=== PATIENT | male | born 1955 | race Caucasian/White ===

== ENCOUNTER 2019-04-25 11:59 | Emergency (ER) | payer MEDICAID ==
[~2019-04-25] VITALS: Ht 182.9 cm; Wt 108.9 kg
[~2019-04-25 11:59] MED LIST: ACETAMINOPHEN-1 EAC1 ORAL; ACETAMINOPHEN500 M3 ORAL; BACITRACIN15 GM TOPIC; IBUPROFEN600 MG ORAL; NKM; NORCO 5-325 TA1 EACH ORAL
--- NOTE | 2019-04-25 14:32 | NUR ---
ED Nurse Note: pt care assummed pt amb steady gait to rm, awaits further eval
--- NOTE | 2019-04-25 15:13 | NUR ---
ED Nurse Note: pt without new orders
--- NOTE | 2019-04-25 15:36 | NUR ---
ED Nurse Note: pt states he needs to go to [facility] and attempting to amb pt became pale and had near syncopal episode pt assisted to ground and then placed back into bed pt noted to have been incontinent prior to attempting ambulation to [facility]. hiro alexis and charge entry specialist aware.
--- NOTE | 2019-04-25 17:00 | NUR ---
ED Nurse Note: pt aware to pee in urinal when able. pt had requested to have his clothing thrown out as he had urinated them.
[2019-04-25 17:34] LABS: BASOPHILS % (AUTO) 0.9 % (0.0-2.0); EOSINOPHILS % (AUTO) 0.2 % (0.0-3.0); HEMOGLOBIN 11.4 G/DL (14.2-18.0); LYMPHOCYTES % (AUTO) 35.2 % (20.0-45.0); MEAN CORPUSCULAR VOLUME 105 FL (80-99); MONOCYTES % (AUTO) 9.1 % (1.0-10.0); NEUTROPHILS % (AUTO) 54.7 % (45.0-75.0); PLATELET COUNT 144 K/UL (150-450); RED BLOOD COUNT 3.51 M/UL (4.70-6.10); RED CELL DISTRIBUTION WIDTH 14.8 % (11.6-14.8); WHITE BLOOD COUNT 7.7 K/UL (4.8-10.8)
--- NOTE | 2019-04-25 17:34 | NUR ---
ED Nurse Note: pt states he lives in [place] and [place] the bus to [place] registration updating pt's data
[2019-04-25 17:41] LABS: ANION GAP 12 mmol/L (5-15); BLOOD UREA NITROGEN 40 mg/dL (7-18); CALCIUM 8.6 MG/DL (8.5-10.1); CARBON DIOXIDE 26 MMOL/L (21-32); CHLORIDE 102 MMOL/L (98-107); CREATININE 0.9 MG/DL (0.55-1.30); POTASSIUM 3.5 MMOL/L (3.5-5.1); SODIUM 140 MMOL/L (136-145)
[2019-04-25 17:45] LABS: ALANINE AMINOTRANSFERASE 119 U/L (12-78); ALBUMIN 3.9 G/DL (3.4-5.0); ALKALINE PHOSPHATASE 37 U/L (46-116); ASPARTATE AMINO TRANSFERASE 88 U/L (15-37); BILIRUBIN,TOTAL 0.4 MG/DL (0.2-1.0)
[2019-04-25 17:47] LABS: PHOSPHORUS 3.7 MG/DL (2.5-4.9)
[2019-04-25 18:49] LABS: APPEARANCE,URINE CLEAR; BILIRUBIN, URINE NEGATIVE (NEGATIVE); GLUCOSE, URINE (UA) NEGATIVE (NEGATIVE); KETONES,URINE 3+ (NEGATIVE); LEUKOCYTE ESTERASE ,URINE NEGATIVE (NEGATIVE); NITRITE,URINE NEGATIVE (NEGATIVE); PH,URINE 5 (4.5-8.0); PROTEIN,URINE 1+ (NEGATIVE); UROBILINOGEN,URINE NORMAL MG/DL (0.0-1.0)
--- NOTE | 2019-04-25 18:50 | NUR ---
ED Nurse Note: voided urine sent to lab. pt without tremors or increased c/o
[2019-04-25 18:59] LABS: COLOR,URINE YELLOW
[2019-04-25 20:00] VITALS: BP 144/67
--- NOTE | 2019-04-25 20:00 | NUR ---
ED Nurse Note: Recieved report to resume care, pt in bed awake and alert, pt is here for etoh abuse and to be discharged when pt can walk safely, pt has severe tremors noted, is restless and slightly agitated, calls nurse very frequently for water, etc., pt denies pain, has patent IV line in right arm, pt stattes is not homeless but does not have anyone to come get him, will continue to closely monitor and prepare for discharge when safe.
--- NOTE | 2019-04-25 22:57 | Emergency Room Report ---
History of Present Illness General Chief Complaint: Alcohol Intoxication Source: Patient Present Illness HPI 63-year-old male presents to the emergency department complaining of possible EtOH withdrawal seizure. Patient states that he has been drinking wine for the past 2 days. Patient reports prior to his 2-day binge he was evaluated at an alternate hospital for possible seizure. Patient reports that someone called 911 because he was shaking. Patient reports he did not lose consciousness and recalls the event. Patient denies history of seizures in the past. He denies history of high blood pressure alcohol withdrawal prior to 2 days ago. Patient denies having consistent EtOH consumption. He reports he feels weak and shaky but denies LOC today. Patient reports that bystanders called 911 when he was not able to walk earlier. He denies open wounds or bleeding. He denies pain at this time. He reports shakiness and weakness is intermittent. Denies drug use. Denies hx of back injury. Denies numbness tingling or loss of sensation or gross motor movements of the extremities, incontinence of bowel or bladder. Denies CP, Palpitations, LOC, , dizziness, Changes in Vision, weakness or a sudden severe headache. He denies neck pain. He denies vomiting or nausea. He denies being rx'd any anti-seizure medications or medications for ETOH w/d. HE denies fevers or chills. Reports he lives at a [facility] facility. Allergies: Coded Allergies: No Known Allergies (Unverified , 04/28/14) Patient History Past Medical History: see triage record Past Surgical History: none Pertinent Family History: none Social History: Reports: alcohol use Reviewed Nursing Documentation: PMH: Agreed; PSxH: Agreed Nursing Documentation-PM Past Medical History: No Stated History Review of Systems All Other Systems: negative except mentioned in HPI Physical Exam Vital Signs Date Time Temp Pulse Resp B/P (MAP) Pulse Ox O2 Delivery O2 Flow Rate FiO2 04/25/19 11:52 98.6 88 16 136/82 (100) 99 Room Air Sp02 EP Interpretation: reviewed, normal General Appearance: no apparent distress, alert, GCS 15, non-toxic Head: normocephalic, atraumatic Eyes: bilateral eye normal inspection, bilateral eye PERRL ENT: hearing grossly normal, normal pharynx, normal voice, TMs + canals normal - no hemotympanum, moist mucus membranes, other - no oral trauma/ lesions/ abrasions. Neck: full range of motion, no meningismus, no bony tend Respiratory: chest non-tender, lungs clear, normal breath sounds, no respiratory distress, no accessory muscle use, no wheezing, speaking full sentences Cardiovascular #1: regular rate, rhythm, normal capillary refill Cardiovascular #2: 2+ radial (R), 2+ radial (L) Gastrointestinal: normal bowel sounds, non tender, soft, non-distended, no guarding Musculoskeletal: back normal, normal range of motion, gait/station normal - without assistance., non-tender Neurologic: alert, motor strength/tone normal, oriented x3, sensory intact, responsive, speech normal - answers questions appropriately and provides sufficient amt. of details without significant increased response time or difficulty with word recall. PT. somewhat lethargic., grossly normal, no focal defects, other - no nystagmus. No agitation or tremulousness Psychiatric: judgement/insight normal, no suicidal/homicidal ideation, no delusions Skin: no rash, normal color Medical Decision Making PA Attestation Dr. Hawk Is my supervising Physician whom patient management has been discussed with. Diagnostic Impression: Primary Impression: Alcohol intoxication Qualified Codes: F10.920 - Alcohol use, unspecified with intoxication, uncomplicated ER Course 63-year-old male presents to the emergency department complaining of possible EtOH withdrawal seizure. Patient states that he has been drinking wine for the past 2 days. Patient reports prior to his 2-day binge he was evaluated at an alternate hospital for possible seizure. Patient reports that someone called 911 because he was shaking. Patient reports he did not lose consciousness and recalls the event. Patient denies history of seizures in the past. He denies history of high blood pressure alcohol withdrawal prior to 2 days ago. Patient denies having consistent EtOH consumption. He reports he feels weak and shaky but denies LOC today. Patient reports that bystanders called 911 when he was not able to walk earlier. He denies open wounds or bleeding. He denies pain at this time. He reports shakiness and weakness is intermittent. Denies drug use. Denies hx of back injury. Denies numbness tingling or loss of sensation or gross motor movements of the extremities, incontinence of bowel or bladder. Denies CP, Palpitations, LOC, , dizziness, Changes in Vision, weakness or a sudden severe headache. He denies neck pain. He denies vomiting or nausea. He denies being rx'd any anti-seizure medications or medications for ETOH w/d. HE denies fevers or chills. Reports he lives at a [facility] facility. Pt. presents to the ED intoxicated with alcohol, pt. is NAD, pt. is alert, no obvious signs of trauma, able to ambulate to the gurney in Ortho room. No obvious indication of agitation or impending ETOH w/d tremens. Ddx considered but are not limited to ETOH, Trauma, Syncope, dementia, OD, Seizure, Cauda Equina, CVA just to name a few. Vital signs: are WNL, pt. is afebrile H&PE are most consistent with ETOH intoxication without focal neurological deficit. PT. upon return evaluation appeared to have urinated on himself while sleeping. Pt. later ambulated to the bathroom and upon return to his room required assistance for near syncope. PT. did not have LOC, and did not have a witnessed sz. ORDERS: -Serum ETOH: 215 - Accucheck: - CMP: elevated ALT at 119 and BUN at 40 -CBC: anemia -Tylenol and ASA levels: WNL - UDS: negative - UA: occasional bacteria but no inflammatory marker increase c/w contamination over UTI. ED INTERVENTIONS: -Observance while he detoxifies. Pt. was allowed to sleep/rest. will do repeat neuro exams and monitor VS. until pt is clinically sober. - PT. has consistently normal VS, not indicating w/d. HE is c/o being shaky and difficulty walking due to "Shakiness" He is able to stand but refuses to ambulate. - Librium PO D/w pt. case with on-coming ED physician whom feels pt. is not demonstrating emergently concerning W/d symptoms and recommends D/c with oral medications. DISCHARGE: At this time pt. is stable for d/c to home. Will provide printed patient care instructions, and any necessary prescriptions. Care plan and follow up instructions have been discussed with the patient prior to discharge. Labs Test 04/25/19 16:10 04/25/19 18:30 White Blood Count 7.7 K/UL (4.8-10.8) Red Blood Count 3.51 M/UL (4.70-6.10) Hemoglobin 11.4 G/DL (14.2-18.0) Hematocrit 37.0 % (42.0-52.0) Mean Corpuscular Volume 105 FL (80-99) Mean Corpuscular Hemoglobin 32.5 PG (27.0-31.0) Mean Corpuscular Hemoglobin Concent 30.9 G/DL (32.0-36.0) Red Cell Distribution Width 14.8 % (11.6-14.8) Platelet Count 144 K/UL (150-450) Mean Platelet Volume 8.2 FL (6.5-10.1) Neutrophils (%) (Auto) 54.7 % (45.0-75.0) Lymphocytes (%) (Auto) 35.2 % (20.0-45.0) Monocytes (%) (Auto) 9.1 % (1.0-10.0) Eosinophils (%) (Auto) 0.2 % (0.0-3.0) Basophils (%) (Auto) 0.9 % (0.0-2.0) Sodium Level 140 MMOL/L (136-145) Potassium Level 3.5 MMOL/L (3.5-5.1) Chloride Level 102 MMOL/L (98-107) Carbon Dioxide Level 26 MMOL/L (21-32) Anion Gap 12 mmol/L (5-15) Blood Urea Nitrogen 40 mg/dL (7-18) Creatinine 0.9 MG/DL (0.55-1.30) Estimat Glomerular Filtration Rate > 60 mL/min (>60) Glucose Level 102 MG/DL (74-106) Calcium Level 8.6 MG/DL (8.5-10.1) Phosphorus Level 3.7 MG/DL (2.5-4.9) Magnesium Level 2.2 MG/DL (1.8-2.4) Total Bilirubin 0.4 MG/DL (0.2-1.0) Aspartate Amino Transf (AST/SGOT) 88 U/L (15-37) Alanine Aminotransferase (ALT/SGPT) 119 U/L (12-78) Alkaline Phosphatase 37 U/L (46-116) Total Protein 7.7 G/DL (6.4-8.2) Albumin 3.9 G/DL (3.4-5.0) Globulin 3.8 g/dL Albumin/Globulin Ratio 1.0 (1.0-2.7) Salicylates Level 1.1 ug/mL (2.8-20) Acetaminophen Level < 2 MCG/ML (10-30) Serum Alcohol 215 mg/dL Urine Color Yellow Urine Appearance Clear Urine pH 5 (4.5-8.0) Urine Specific [place] 1.020 (1.005-1.035) Urine Protein 1+ (NEGATIVE) Urine Glucose (UA) Negative (NEGATIVE) Urine Ketones 3+ (NEGATIVE) Urine Blood 1+ (NEGATIVE) Urine Nitrite Negative (NEGATIVE) Urine Bilirubin Negative (NEGATIVE) Urine Urobilinogen Normal MG/DL (0.0-1.0) Urine Leukocyte Esterase Negative (NEGATIVE) Urine RBC 0-2 /HPF (0 - 0) Urine WBC 0-2 /HPF (0 - 0) Urine Squamous Epithelial Cells None /LPF (NONE/OCC) Urine Bacteria Occasional /HPF (NONE) Urine Opiates Screen Negative (NEGATIVE) Urine Barbiturates Screen Negative (NEGATIVE) Phencyclidine (PCP) Screen Negative (NEGATIVE) Urine Amphetamines Screen Negative (NEGATIVE) Urine Benzodiazepines Screen Negative (NEGATIVE) Urine Cocaine Screen Negative (NEGATIVE) Urine Marijuana (THC) Screen Negative (NEGATIVE) EKG Diagnostic Results EP Interpretation: Dr. Hawk Rate: normal - 91 BPM Rhythm: NSR ST Segments: no acute changes Other Impression Left fascicular block, PAC's ASA given to the pt in ED: No PA Scribe Text This Interpretation was scribed by MARIAMA Rodriguez. Last Vital Signs Date Time Temp Pulse Resp B/P (MAP) Pulse Ox O2 Delivery O2 Flow Rate FiO2 04/25/19 18:51 88 16 Room Air 04/25/19 11:52 98.6 136/82 (100) 99 Disposition: HOME, SELF-CARE Condition: Stable Physician Consult: Dr. Yane Lugo Chlordiazepoxide Hcl* (LIBRIUM*) 10 Mg Capsule 10 MG ORAL Q8HR for ETOH Withdraw symptoms, #6 CAP 0 Refills Prov: Daniela Rodriguez 04/25/19 Referrals: NOT CHOSEN IPA/MD,REFERRING (PCP) Patient Instructions: Alcohol Abuse and Nutrition, Alcohol Intoxication, Easy- to-Read, Alcohol Withdrawal Daniela Rodriguez Apr 25, 2019 22:57
[2019-04-25] MEDS ORDERED: chlordiazePOXIDE 25mg Cap ORAL ONE (23:15)
[2019-04-25] MEDS ORDERED: LIBRIUM10 MG ORAL (23:16)
[2019-04-26 00:05] VITALS: BP 144/67
== END 2019-04-26 00:05 | disposition home or self-care (01) ==
LOC: EDBD 11:59 → EMR 12:41
DX: F10.920 Alcohol use, unspecified with intoxication, uncomplicated (principal); Y90.7 Blood alcohol level of 200-239 mg/100 ml; D64.9 Anemia, unspecified; R55 Syncope and collapse; R56.9 Unspecified convulsions
CPT/HCPCS: 36415; 80053; 80307; 81003; 82962; 83735; 84100; 85025; 93005; 96360; G0480; G0481; J7030; Z7502; 99284

== ENCOUNTER 2019-05-22 23:09 | Emergency (ER) | payer MEDICAID ==
[~2019-05-22] VITALS: Ht 182.9 cm; Wt 90.7 kg
[~2019-05-22 23:09] MED LIST changes: +LIBRIUM10 MG ORAL
--- NOTE | 2019-05-22 23:24 | NUR ---
ED Nurse Note: pt SHIRA CO 10/ pain in right morgan that radiates up leg. Pt states that he was playing basketball earlier today and was accidentally hit in the leg by another player. Moderate sized hardened mass on right morgan; pt states mass has been present for 2 years. Pt VSS no s/s of distress noted. Awaiting ERMD at bedside. Pt aao x 4.
[2019-05-22 23:25] VITALS: BP 114/24
--- NOTE | 2019-05-22 23:40 | NUR ---
ED Nurse Note: All medications administered; pt tolerated well no s/s of distress noted. no adverse reactions noted
--- NOTE | 2019-05-22 23:50 | NUR ---
ED Nurse Note: ERMD at bedside
[2019-05-22] MEDS ORDERED: IBUPROFEN600 MG ORAL (23:52)
--- NOTE | 2019-05-22 23:52 | Emergency Room Report ---
History of Present Illness General Chief Complaint: Pain Source: Patient Present Illness HPI Is a 63-year-old male with a history of chronic pain secondary to right tibia fracture in the past. He also is an alcoholic. He has been here several times for the same thing. He called 911 complaining of right leg pain. Is a chronic problem but worse today after playing basketball. No other injury. Did not pass out. Pain is 9 out of 10. No fever chills but no nausea no vomiting. Allergies: Coded Allergies: No Known Allergies (Unverified , 04/28/14) Patient History Past Medical History: see triage record, old chart reviewed Past Surgical History: other Pertinent Family History: none Social History: Reports: alcohol use Immunizations: other Reviewed Nursing Documentation: PMH: Agreed; PSxH: Agreed Nursing Documentation-PM Past Medical History: No Stated History Review of Systems Eye: Denies: eye pain, blurred vision ENT: Denies: ear pain, nose congestion, throat swelling Respiratory: Denies: cough, shortness of breath Cardiovascular: Denies: chest pain, palpitations Gastrointestinal: Denies: abdominal pain, diarrhea, nausea, vomiting Musculoskeletal: Reports: muscle pain; Denies: back pain, joint pain Skin: Denies: rash Neurological: Denies: headache, numbness Endocrine: Denies: increased thirst, increased urine Hematologic/Lymphatic: Denies: easy bruising All Other Systems: negative except mentioned in HPI Physical Exam Vital Signs Date Time Temp Pulse Resp B/P (MAP) Pulse Ox O2 Delivery O2 Flow Rate FiO2 05/22/19 23:18 98.6 62 18 114/24 (54) 99 Room Air Vitals normal Sp02 EP Interpretation: reviewed, normal General Appearance: well appearing, no apparent distress, alert Head: normocephalic, atraumatic Eyes: bilateral eye PERRL, bilateral eye EOMI ENT: hearing grossly normal, normal pharynx Neck: full range of motion, supple, no meningismus Respiratory: chest non-tender, lungs clear, normal breath sounds Cardiovascular #1: regular rate, rhythm, no murmur Gastrointestinal: normal bowel sounds, non tender, no mass, no organomegaly, no bruit, non-distended Musculoskeletal: back normal, normal range of motion, gait/station normal, other - Right leg: There is deformity to the mid tibial shaft. This is chronic. No new fracture. Psychiatric: mood/affect normal Medical Decision Making Diagnostic Impression: Primary Impression: Chronic leg pain Qualified Codes: M79.604 - Pain in right leg; G89.29 - Other chronic pain Additional Impression: Chronic pain Qualified Codes: G89.4 - Chronic pain syndrome ER Course No exacerbation of right leg pain. No evidence of infection or new injury. No fracture. Will discharge home. Last Vital Signs Date Time Temp Pulse Resp B/P (MAP) Pulse Ox O2 Delivery O2 Flow Rate FiO2 05/22/19 23:25 98.6 62 18 114/24 99 Room Air Status: improved Disposition: HOME, SELF-CARE Condition: Stable Scripts Ibuprofen* (MOTRIN*) 600 Mg Tablet 600 MG ORAL THREE TIMES A DAY, #30 TAB 0 Refills Prov: Angelo Che MD 05/22/19 Referrals: NOT CHOSEN IPA/,REFERRING (PCP) Additional Instructions: Follow-up with your doctor in 7 days. Return if worse. Angelo Che MD May 22, 2019 23:52
[2019-05-23 00:02] VITALS: BP 114/24
--- NOTE | 2019-05-23 00:02 | NUR ---
ER DISCHARGE NOTE: Patient is cleared to be discharged home per ERMD, pt is aox4, on room air, with stable vital signs. pt was given dc and prescription instructions, pt was able to verbalize understanding, pt id band removed. pt is able to ambulate with steady gait. pt took all belongings. Pt refused to leave room after signing DC paperwork; ERMD aware. Security notified per ERMD. Pt was escorted to waiting room with all belongings.
== END 2019-05-23 00:02 | disposition home or self-care (01) ==
LOC: EDUNIT# 23:09 → EDBD 23:09 → EMR 23:31
DX: M79.604 Pain in right leg (principal); G89.29 Other chronic pain; G89.4 Chronic pain syndrome
CPT/HCPCS: 99281

== ENCOUNTER 2020-01-05 13:25 | Emergency (ER) | payer MEDICAID ==
[~2020-01-05] VITALS: Ht 185.4 cm; Wt 88.5 kg
--- NOTE | 2020-01-05 13:30 | NUR ---
ED Nurse Note: Patient was brought in by [facility] [id number]homeless due to ETOH and Rt leg pain. Patient presented with strong smell of alcohol, AAO x3, VSS at this time, IV was established on left AC 20ga, blood collected sent to lab.
--- NOTE | 2020-01-05 13:55 | Emergency Room Report ---
History of Present Illness General Chief Complaint: Alcohol Intoxication Source: Patient Present Illness HPI 64-year-old male with no known significant past medical history brought in by paramedics due to alcohol intoxication and right leg pain. Patient reports that injured his right lower leg and started drinking alcohol. Denies any drug use, chest pain, shortness of breath, headache and dizziness. Speaking in full sentences. Patient is neurovascularly intact. Denies abdominal pain, nausea diarrhea. At this time patient is a poor historian. Allergies: Coded Allergies: No Known Allergies (Unverified , 04/28/14) COVID-19 Screening Contact w/high risk pt: No Experienced COVID-19 symptoms?: No COVID-19 Testing performed DEPUTY SHERIFF K9 HANDLER: No Patient History Past Medical History: see triage record Past Surgical History: unable to obtain Pertinent Family History: unable to obtain Social History: Reports: alcohol use Reviewed Nursing Documentation: PMH: Agreed; PSxH: Agreed Nursing Documentation-PM Past Medical History: No History, Except For Hx Cardiac Problems: No - ETOH Review of Systems All Other Systems: negative except mentioned in HPI Physical Exam Vital Signs Date Time Temp Pulse Resp B/P (MAP) Pulse Ox O2 Delivery O2 Flow Rate FiO2 01/05/20 13:21 98.2 70 18 98/62 (74) 95 Room Air Sp02 EP Interpretation: abnormal - Low blood pressure General Appearance: mild distress Head: normocephalic, atraumatic Eyes: bilateral eye normal inspection, bilateral eye PERRL ENT: hearing grossly normal, normal pharynx, no angioedema, normal voice Neck: full range of motion, supple/symm/no masses Respiratory: chest non-tender, lungs clear, normal breath sounds, speaking full sentences Cardiovascular #1: regular rate, rhythm, no edema Cardiovascular #2: 2+ radial (R), 2+ radial (L), 2+ dorsalis pedis (R), 2+ dorsalis pedis (L) Gastrointestinal: normal bowel sounds, non tender, soft, non-distended, no guarding, no rebound Genitourinary: no CVA tenderness Musculoskeletal: back normal, no calf tenderness, pelvis stable, non-tender, other - Deformity of anterior right tib-fib which appears to be old Neurologic: alert, motor strength/tone normal, oriented, sensory intact, responsive, speech normal Psychiatric: mood/affect normal, no suicidal/homicidal ideation Skin: no rash Lymphatic: no adenopathy Medical Decision Making PA Attestation All my diagnosis and treatment plans were reviewed ad discussed with my supervising physician Dr. Garcia Diagnostic Impression: Primary Impression: Acute alcoholic intoxication Additional Impression: Chronic leg pain ER Course 64-year-old male with no known significant past medical history brought in by paramedics due to alcohol intoxication and right leg pain. Patient reports that injured his right lower leg and started drinking alcohol. Denies any drug use, chest pain, shortness of breath, headache and dizziness. Speaking in full sentences. Patient is neurovascularly intact. Denies abdominal pain, nausea diarrhea. At this time patient is a poor historian. Ddx considered but are not limited to: Alcohol intoxication with altered level of consciousness, alcohol intoxication causing pancreatitis, alcohol abuse, multi drug use and alcohol intoxication Vital signs: are WNL, pt. is afebrile H&PE are most consistent with: alcohol intoxication, chronic leg pain ORDERS: CBC, CMP, UA, urine tox screen,cxr, right tib fib ER intervention: NS bolus, zofran, pepcid DISCHARGE: At this time pt. is stable for d/c to home. Will provide printed patient care instructions, and any necessary prescriptions. Care plan and follow up instructions have been discussed with the patient prior to discharge. Avoid alcohol intake, follow-up with primary care provider and pain management regarding chronic leg pain, worsening symptoms return to the emergency room EKG Diagnostic Results Rate: normal Rhythm: NSR ST Segments: no acute changes Other Impression No acute ST changes ASA given to the pt in ED: No Chest X-Ray Diagnostic Results Chest X-Ray Diagnostic Results : Chest X-Ray Ordered: Yes # of Views/Limited/Complete: 1 View EP Interpretation: Yes PA Xray: Interpretation reviewed, by supervising MD, and agrees with findings. Interpretation: no consolidation, no effusion, no pneumothorax, no acute cardiopulmonary disease Impression: No acute disease Electronically Signed by: Mehul Capps PA-C CT/MRI/US Diagnostic Results CT/MRI/US Diagnostic Results : Imaging Test Ordered: Head CT no contrast Impression No intracranial bleed, no skull fracture Last Vital Signs Date Time Temp Pulse Resp B/P (MAP) Pulse Ox O2 Delivery O2 Flow Rate FiO2 01/05/20 13:28 87 20 Room Air 01/05/20 13:21 98.2 98/62 (74) 95 Disposition: HOME, SELF-CARE Condition: Stable Patient Instructions: Alcohol Abuse and Nutrition, Alcohol Intoxication, [id number], Chronic Pain Additional Instructions: Avoid alcohol intake, follow-up with primary care provider and pain management regarding chronic leg pain, worsening symptoms return to the emergency room Mehul Coleman Jan 05, 2020 13:55
--- NOTE | 2020-01-05 14:26 | Diagnostic Imaging Report ---
Indications: Altered level of consciousness Technique: Spiral acquisitions obtained through the brain. Angled axial and coronal 5 x 5 mm slices were reconstructed. Total dose length product 1152 mGycm. CTDI vol(s) 53 mGy. Dose reduction achieved using automated exposure control Comparison: None. Findings: There is age-related enlargement of the ventricles and extra axial CSF spaces. There is periventricular deep white matter low-attenuation consistent with chronic microvascular ischemic change. Otherwise normal zuñiga-white differentiation. No acute intracranial hemorrhage or edema, mass effect, nor midline shift. The calvarium is intact. The mastoids are clear. The visualized orbits and sinuses are unremarkable. Impression: Chronic and age-related changes Negative for acute intracranial bleed or mass effect The CT scanner at [facility] is accredited by the [employer] and the scans are performed using protocols designed to limit radiation exposure to as low as reasonably achievable to attain images of sufficient resolution adequate for diagnostic evaluation.
[2020-01-05 14:41] LABS: HEMATOCRIT 38.8 % (42.0-52.0); HEMOGLOBIN 12.9 G/DL (14.2-18.0); MEAN CORPUSCULAR VOLUME 92 FL (80-99); PLATELET COUNT 128 K/UL (150-450); RED BLOOD COUNT 4.21 M/UL (4.70-6.10); RED CELL DISTRIBUTION WIDTH 16.2 % (11.6-14.8); WHITE BLOOD COUNT 4.4 K/UL (4.8-10.8)
[2020-01-05 14:57] LABS: ANION GAP 10 mmol/L (5-15); BLOOD UREA NITROGEN 7 mg/dL (7-18); CALCIUM 8.1 MG/DL (8.5-10.1); CARBON DIOXIDE 29 MMOL/L (21-32); CHLORIDE 102 MMOL/L (98-107); CREATININE 0.9 MG/DL (0.55-1.30); POTASSIUM 4.2 MMOL/L (3.5-5.1); SODIUM 141 MMOL/L (136-145)
[2020-01-05 15:05] LABS: ALANINE AMINOTRANSFERASE 93 U/L (12-78); ALBUMIN/GLOBULIN RATIO 1.1 (1.0-2.7); ALKALINE PHOSPHATASE 44 U/L (46-116); ASPARTATE AMINO TRANSFERASE 142 U/L (15-37); BILIRUBIN,TOTAL 0.6 MG/DL (0.2-1.0)
--- NOTE | 2020-01-05 15:05 | NUR ---
ED Nurse Note: diner tray was provided
[2020-01-05] MEDS ORDERED: DiphenhydrAMINE 50mg/ml Inj IM ONE (15:30)
[2020-01-05] MEDS ORDERED: chlordiazePOXIDE 25mg Cap ORAL ONE (15:30)
[2020-01-05] MEDS ORDERED: LORazepam Inj 2mg/ml 1ml IM ONE (15:30)
--- NOTE | 2020-01-05 16:13 | Diagnostic Imaging Report ---
Indication: Chest pain Technique: One view of the chest Comparison: none Findings: Lungs and pleural spaces are clear. Heart size is normal. The aorta is tortuous Impression: No acute process
--- NOTE | 2020-01-05 16:14 | Diagnostic Imaging Report ---
Indication: Reason For Exam: TRAUMA Technique: 2 views of the right tibia and fibula Comparison: none Findings: There are old healed fracture deformities of the mid tibia and fibula. There is a defect in the proximal tibia which may represent old screw hole. No acute fractures. No dislocations. Impression: Chronic posttraumatic changes as described. No definite acute bony trauma
[2020-01-05] MEDS ORDERED: Thiamine 100mg tab ORAL ONE (16:30)
--- NOTE | 2020-01-05 18:45 | NUR ---
ED Nurse Note: Patient is sleeping, all VSS at this time, NAD noted
[2020-01-05 18:46] VITALS: BP 144/87
--- NOTE | 2020-01-05 19:10 | NUR ---
HAND-OFF: Report given to YINA Arteaga.
--- NOTE | 2020-01-05 19:15 | NUR ---
ED Nurse Note: Recieved report from YINA Ware to resume care, pt in bed resting quietly, sleeping, arouses easily to verbal stimuli, pt urinated on floor and clothing is soiled, pt here for ETOH intoxication and being d/c when sober, pt IV line on floor, pt is calm and cooperative and asking for foiiod, given sandwich and juice, will resume care, continue to closely monitor and d/c when sober.
[2020-01-05 20:30] VITALS: BP 144/87
--- NOTE | 2020-01-08 19:37 | Cardiology Report ---
APPROVED REPORT EKG Measurement Heart [id number] <Conclusion> Normal sinus rhythm Left axis deviation Septal infarct, age undetermined IVCD Abnormal ECG
== END 2020-01-05 20:30 | disposition home or self-care (01) ==
LOC: EDBD 13:25 → EMR 13:57
DX: F10.129 Alcohol abuse with intoxication, unspecified (principal); G89.29 Other chronic pain; M79.661 Pain in right lower leg; Y90.8 Blood alcohol level of 240 mg/100 ml or more
CPT/HCPCS: 36415; 70450; 71045; 73590; 80053; 83690; 84484; 85007; 85025; 93005; 96361; 96372; 96374; 96375; 96376; G0480; J2405; J7030; S0028; Z7502; 99284

== ENCOUNTER 2020-02-04 17:20 | Emergency (ER) | payer MEDICAID ==
[~2020-02-04] VITALS: Ht 182.9 cm; Wt 83.9 kg
--- NOTE | 2020-02-04 17:20 | NUR ---
ED Nurse Note: Pt was brought in by ambulance from a liquor store d/t ETOH intoxication. Pt is currently AOx3, lethargic, cooperative to care whenever being called, VSS, breathing even and unlabored, afebrile on triage. Pt was placed on bed, safety measures in placed, will continue to monitor.
--- NOTE | 2020-02-04 17:25 | Emergency Room Report ---
History of Present Illness General Chief Complaint: Alcohol Intoxication Source: EMS Present Illness HPI Disclaimer: Please note that this report is being documented using DRAGON technology. This can lead to erroneous entry secondary to incorrect interpretation by the dictating instrument. HPI: 64-year-old male history of alcohol abuse presents for evaluation of intoxication/detox. Patient requesting medical detox at this time. States he has not had alcohol in several days. Denies tremors, agitation, nausea, vomiting, palpitations, chest pain, shortness of breath, diarrhea, fever, chills or other symptoms. He states he has not completed detox program in the past but would like to. Denies other drug use. Brought in by EMS from the street. Also stated that he had a pain in his right leg. He has been seen for this multiple times. No acute injury reported. He is somnolent and provides little history. PMH: Alcohol abuse PSH: Patient denied Allergies: Patient denied Social Hx: Alcohol abuse Allergies: Coded Allergies: No Known Allergies (Unverified , 04/28/14) COVID-19 Screening Contact w/high risk pt: No Experienced COVID-19 symptoms?: No COVID-19 Testing performed SUPERVISOR METER SHOP: No Nursing Documentation-PMH Hx Cardiac Problems: No - ETOH Review of Systems All Other Systems: negative except mentioned in HPI Physical Exam Vital Signs Date Time Temp Pulse Resp B/P (MAP) Pulse Ox O2 Delivery O2 Flow Rate FiO2 02/04/20 17:14 97.5 72 18 119/72 (88) 98 General: Somnolent but arousable, no acute distress, sleeping comfortably HEENT: NC/AT. EOMI. Cardiovascular: RRR. S1 and S2 normal. No murmur appreciated Resp: Normal work of breathing. No cough, wheezing or crackles appreciated Abdomen: Abdomen is soft, nondistended. Nontender Skin: Intact. No abrasions, laceration or rash over the exposed skin MSK: Normal tone and bulk. Moving all extremities. No obvious deformity. Neuro: Somnolent but arousable, sleeping comfortably. GCS 14. Moving all extremities. Medical Decision Making Diagnostic Impression: Primary Impression: Acute alcoholic intoxication Additional Impression: Alcohol abuse ER Course 64-year-old male history of alcohol abuse presents requesting detox services. Alcohol level significantly elevated. Will require metabolization in the ED. He easily awakens and responds appropriately. Other labs are within normal limits. Patient can be discharged with outpatient follow-up and referral to outpatient detox services once awake. Prescribed thiamine and folate. Laboratory Tests Test 02/04/20 17:40 02/04/20 18:15 White Blood Count 4.9 K/UL (4.8-10.8) Red Blood Count 3.63 M/UL (4.70-6.10) L Hemoglobin 12.1 G/DL (14.2-18.0) L Hematocrit 37.7 % (42.0-52.0) L Mean Corpuscular Volume 104 FL (80-99) H Mean Corpuscular Hemoglobin 33.4 PG (27.0-31.0) H Mean Corpuscular Hemoglobin Concent 32.2 G/DL (32.0-36.0) Red Cell Distribution Width 18.7 % (11.6-14.8) H Platelet Count 113 K/UL (150-450) L Mean Platelet Volume 7.7 FL (6.5-10.1) Neutrophils (%) (Auto) 32.1 % (45.0-75.0) L Lymphocytes (%) (Auto) 54.9 % (20.0-45.0) H Monocytes (%) (Auto) 10.4 % (1.0-10.0) H Eosinophils (%) (Auto) 0.5 % (0.0-3.0) Basophils (%) (Auto) 2.1 % (0.0-2.0) H Sodium Level 139 MMOL/L (136-145) Potassium Level 4.4 MMOL/L (3.5-5.1) Chloride Level 102 MMOL/L (98-107) Carbon Dioxide Level 26 MMOL/L (21-32) Anion Gap 11 mmol/L (5-15) Blood Urea Nitrogen 13 mg/dL (7-18) Creatinine 1.0 MG/DL (0.55-1.30) Estimated Glomerular Filtration Rate > 60 mL/min (>60) Glucose Level 104 MG/DL (74-106) Calcium Level 8.0 MG/DL (8.5-10.1) L Total Bilirubin 0.6 MG/DL (0.2-1.0) Aspartate Amino Transferase (AST) 323 U/L (15-37) H Alanine Aminotransferase (ALT) 142 U/L (12-78) H Alkaline Phosphatase 44 U/L (46-116) L Total Protein 7.2 G/DL (6.4-8.2) Albumin 3.9 G/DL (3.4-5.0) Globulin 3.3 g/dL Albumin/Globulin Ratio 1.2 (1.0-2.7) Salicylates Level 0.7 ug/mL (2.8-20) L Acetaminophen Level < 2 MCG/ML (10-30) L Serum Alcohol 496 mg/dL Urine Opiates Screen Negative (NEGATIVE) Urine Barbiturates Screen Negative (NEGATIVE) Phencyclidine (PCP) Screen Negative (NEGATIVE) Urine Amphetamines Screen Negative (NEGATIVE) Urine Benzodiazepines Screen Positive (NEGATIVE) H Urine Cocaine Screen Negative (NEGATIVE) Urine Marijuana (THC) Screen Negative (NEGATIVE) Last Vital Signs Date Time Temp Pulse Resp B/P (MAP) Pulse Ox O2 Delivery O2 Flow Rate FiO2 02/04/20 17:14 97.5 72 18 119/72 (88) 98 Disposition: HOME, SELF-CARE Condition: Stable Scripts Thiamine Hcl* (VITAMIN B-1*) 100 Mg Tablet 100 MG ORAL DAILY, #30 TAB 0 Refills Prov: Josh Ellis MD 02/04/20 Folic Acid* (FOLIC ACID*) 1 Mg Tablet 1 MG ORAL DAILY for SUPPLEMENT for 30 Days, #30 TAB Prov: Josh Ellis MD 02/04/20 Josh Ellis MD Feb 04, 2020 17:25
[2020-02-04 17:45] VITALS: BP 119/72
[2020-02-04 17:57] LABS: BASOPHILS % (AUTO) 2.1 % (0.0-2.0); EOSINOPHILS % (AUTO) 0.5 % (0.0-3.0); HEMATOCRIT 37.7 % (42.0-52.0); HEMOGLOBIN 12.1 G/DL (14.2-18.0); LYMPHOCYTES % (AUTO) 54.9 % (20.0-45.0); MEAN CORPUSCULAR VOLUME 104 FL (80-99); MONOCYTES % (AUTO) 10.4 % (1.0-10.0); NEUTROPHILS % (AUTO) 32.1 % (45.0-75.0); PLATELET COUNT 113 K/UL (150-450); RED BLOOD COUNT 3.63 M/UL (4.70-6.10); RED CELL DISTRIBUTION WIDTH 18.7 % (11.6-14.8); WHITE BLOOD COUNT 4.9 K/UL (4.8-10.8)
[2020-02-04 18:06] LABS: ANION GAP 11 mmol/L (5-15); BLOOD UREA NITROGEN 13 mg/dL (7-18); CARBON DIOXIDE 26 MMOL/L (21-32); CHLORIDE 102 MMOL/L (98-107); POTASSIUM 4.4 MMOL/L (3.5-5.1); SODIUM 139 MMOL/L (136-145)
[2020-02-04 18:11] LABS: ALANINE AMINOTRANSFERASE 142 U/L (12-78); ALBUMIN 3.9 G/DL (3.4-5.0); ALBUMIN/GLOBULIN RATIO 1.2 (1.0-2.7); ALKALINE PHOSPHATASE 44 U/L (46-116); ASPARTATE AMINO TRANSFERASE 323 U/L (15-37); BILIRUBIN,TOTAL 0.6 MG/DL (0.2-1.0)
[2020-02-04] MEDS ORDERED: VITAMIN B-1100 MG ORAL (18:11)
[2020-02-04] MEDS ORDERED: FOLIC ACID1 MG ORAL (18:11)
--- NOTE | 2020-02-04 19:15 | NUR ---
ED Nurse Note: Recieved report from am nurse to resume care, pt in bed sleeping, intoxicated with high ETOH level, pt lying prone in bed completely dressed, pt gowned and palced on monitoring, will resume care and continue to closely monitor, pt has patent saline lock in right arm, nad or labored breathing noted, pt is very lethargic and hard to awaken.
[2020-02-04 19:20] VITALS: BP 112/64
[2020-02-04 22:00] VITALS: BP 119/67
--- NOTE | 2020-02-04 22:00 | NUR ---
ED Nurse Note: Pt continues to rest quietly, now laying supine, no changes or increased distress noted, v/s stable, will contimnue to monitor and d/c when awakened.
[2020-02-04 23:20] VITALS: BP 119/67
--- NOTE | 2020-02-04 23:20 | NUR ---
ER DISCHARGE NOTE: Patient is cleared to be discharged per ERMD, pt is aox4, on room air, with stable vital signs. pt was given dc and prescription instructions, pt was able to verbalize understanding, pt id band and iv site removed without complications. pt is able to ambulate with steady gait. pt took all belongings.
== END 2020-02-04 23:20 | disposition home or self-care (01) ==
LOC: EDBD 17:20 → EMR 18:37
DX: F10.129 Alcohol abuse with intoxication, unspecified (principal); Y90.8 Blood alcohol level of 240 mg/100 ml or more
CPT/HCPCS: 36415; 80053; 80307; 85025; G0480; G0481; Z7502; 99284

== ENCOUNTER 2020-03-05 20:03 | Emergency (ER) | payer MEDICAID ==
[~2020-03-05] VITALS: Ht 180.3 cm; Wt 86.2 kg
[~2020-03-05 20:03] MED LIST changes: +FOLIC ACID1 MG ORAL; +VITAMIN B-1100 MG ORAL
[2020-03-05 20:15] VITALS: BP 112/80
--- NOTE | 2020-03-05 20:22 | Emergency Room Report ---
History of Present Illness General Chief Complaint: Alcohol Intoxication Present Illness HPI 64-year-old male with history of alcohol intoxication who has been here multiple times for alcohol intoxication brought in by paramedics due to drinking too much alcohol pending empty bottle of wine next to him. Denies any chest pain shortness of breath upon arrival. Is alert and oriented. Appears to be stable. Slightly tachycardic most likely secondary to alcohol intoxication. Denies other drug use. (Mehul Coleman) Allergies: Coded Allergies: No Known Allergies (Unverified , 04/28/14) COVID-19 Screening Contact w/high risk pt: No Experienced COVID-19 symptoms?: No COVID-19 Testing performed ASBESTOS MICROSCOPIST: No (Mehul Coleman) Patient History Past Medical History: see triage record Past Surgical History: unable to obtain Pertinent Family History: unable to obtain Social History: Reports: alcohol use Reviewed Nursing Documentation: PMH: Agreed; PSxH: Agreed (Mehul Coleman) Nursing Documentation-PMH Hx Cardiac Problems: No - ETOH (Mehul Coleman) Review of Systems All Other Systems: negative except mentioned in HPI (Mehul Coleman) Physical Exam Vital Signs Date Time Temp Pulse Resp B/P (MAP) Pulse Ox O2 Delivery O2 Flow Rate FiO2 03/05/20 20:00 98.4 119 16 112/80 (91) 97 Room Air Sp02 EP Interpretation: reviewed, normal General Appearance: no apparent distress, alert Head: normocephalic, atraumatic Eyes: bilateral eye normal inspection, bilateral eye PERRL ENT: hearing grossly normal, normal pharynx, no angioedema, normal voice Neck: full range of motion, supple/symm/no masses Respiratory: chest non-tender, lungs clear, normal breath sounds, speaking full sentences Cardiovascular #1: regular rate, rhythm, no edema Gastrointestinal: normal bowel sounds, non tender, soft, non-distended, no guarding, no rebound Genitourinary: no CVA tenderness Musculoskeletal: back normal Neurologic: alert, motor strength/tone normal, oriented, sensory intact, responsive, speech normal Psychiatric: other Skin: no rash Lymphatic: no adenopathy (Mehul Coleman) Medical Decision Making PA Attestation All my diagnosis and treatment plans were reviewed ad discussed with my supervising physician Dr. Garcia (Mehul Coleman) Homeless Attestation I, The treating physician, Dr Angelo Che, has assessed and agrees that patient is medically stable for discharge to an outpatient disposition. (Angelo Che MD) Diagnostic Impression: Primary Impression: Acute alcoholic intoxication Qualified Codes: F10.920 - Alcohol use, unspecified with intoxication, uncomplicated ER Course 64-year-old male with history of alcohol intoxication who has been here multiple times for alcohol intoxication brought in by paramedics due to drinking too much alcohol pending empty bottle of wine next to him. Denies any chest pain shortness of breath upon arrival. Is alert and oriented. Appears to be stable. Slightly tachycardic most likely secondary to alcohol intoxication. Denies other drug use. Ddx considered but are not limited to: Alcohol intoxication with altered level of consciousness, alcohol intoxication causing pancreatitis, alcohol abuse, multi drug use and alcohol intoxication Vital signs: are WNL, pt. is afebrile H&PE are most consistent with: alcohol intoxication ORDERS: CBC, CMP, ETOH, ER intervention: NS bolus I signed out the patient to Dr. Garcia at 9 PM DISCHARGE: At this time pt. is stable for d/c to home. Will provide printed patient care instructions, and any necessary prescriptions. Care plan and follow up instructions have been discussed with the patient prior to discharge. (Mehul Coleman) Last Vital Signs Date Time Temp Pulse Resp B/P (MAP) Pulse Ox O2 Delivery O2 Flow Rate FiO2 03/05/20 20:00 98.4 119 16 112/80 (91) 97 Room Air (Mehul Colmean) Disposition: HOME, SELF-CARE Condition: Stable Patient Instructions: Alcohol Abuse and Nutrition Mehul Coleman Mar 05, 2020 20:22 Angelo Che MD Mar 05, 2020 22:33
--- NOTE | 2020-03-05 20:30 | NUR ---
Nurse Note: Pt brought in by ambulance 863 c/o ETOH. Pt was found with 3 empty bottles of wine. PT ambulance. PT has an old hospital wristband. IV est; blood sent to lab. Pt infusing 2L NS. Pt resting well. No signs of n/v
[2020-03-05 20:59] LABS: ANION GAP 12 mmol/L (5-15); BLOOD UREA NITROGEN 11 mg/dL (7-18); CALCIUM 8.4 MG/DL (8.5-10.1); CARBON DIOXIDE 26 MMOL/L (21-32); CHLORIDE 102 MMOL/L (98-107); CREATININE 0.9 MG/DL (0.55-1.30); POTASSIUM 4.3 MMOL/L (3.5-5.1); SODIUM 140 MMOL/L (136-145)
[2020-03-05 21:06] LABS: ALANINE AMINOTRANSFERASE 108 U/L (12-78); ALKALINE PHOSPHATASE 69 U/L (46-116); ASPARTATE AMINO TRANSFERASE 193 U/L (15-37); BILIRUBIN,TOTAL 0.3 MG/DL (0.2-1.0)
[2020-03-05 21:12] LABS: BASOPHILS % (AUTO) 2.1 % (0.0-2.0); EOSINOPHILS % (AUTO) 1.2 % (0.0-3.0); HEMATOCRIT 38.2 % (42.0-52.0); HEMOGLOBIN 12.9 G/DL (14.2-18.0); LYMPHOCYTES % (AUTO) 50.8 % (20.0-45.0); MEAN CORPUSCULAR VOLUME 101 FL (80-99); MONOCYTES % (AUTO) 11.4 % (1.0-10.0); NEUTROPHILS % (AUTO) 34.5 % (45.0-75.0); PLATELET COUNT 192 K/UL (150-450); RED BLOOD COUNT 3.78 M/UL (4.70-6.10); RED CELL DISTRIBUTION WIDTH 16.2 % (11.6-14.8); WHITE BLOOD COUNT 4.3 K/UL (4.8-10.8)
[2020-03-05 22:52] VITALS: BP 112/80
== END 2020-03-05 22:55 | disposition home or self-care (01) ==
LOC: EDBD 20:03 → EMR 20:29
DX: F10.129 Alcohol abuse with intoxication, unspecified (principal)
CPT/HCPCS: 36415; 80053; 85025; 96360; 96361; G0480; Z7502; 99284

== ENCOUNTER 2020-04-19 16:57 | Inpatient (IN) | payer MEDICAID ==
[~2020-04-19] VITALS: Ht 180.3 cm; Wt 76.7 kg
[2020-04-19] MEDS ORDERED: Folic Acid 1 MG, Multivitamin - 12 Injection 10 ML, Thiamine HCl 100 MG in Sodium Chlor... IV ONE (17:00)
--- NOTE | 2020-04-19 17:29 | Emergency Room Report ---
History of Present Illness General Chief Complaint: Dyspnea/Respdistress Source: Patient, EMS Present Illness HPI Patient is a 64-year-old male past medical history of alcohol abuse who presents to the ER complaining of shortness of breath. Patient states that his shortness of breath began today due to alcohol withdrawals. He states that his last drink was last night. Patient states that he also fell and hit his head last night he denies any loss of consciousness. Any chest pain. He denies any cough. He denies any abdominal pain nausea or vomiting. Patient was brought in from the store by EMS. Allergies: Coded Allergies: No Known Allergies (Unverified , 04/28/14) COVID-19 Screening Contact w/high risk pt: No Experienced COVID-19 symptoms?: No COVID-19 Testing performed FOLDER MACHINE: No Patient History Reviewed Nursing Documentation: PMH: Agreed; PSxH: Agreed Nursing Documentation-PMH Past Medical History: No History, Except For Hx Cardiac Problems: No - ETOH Review of Systems All Other Systems: negative except mentioned in HPI Physical Exam Vital Signs Date Time Temp Pulse Resp B/P (MAP) Pulse Ox O2 Delivery O2 Flow Rate FiO2 04/19/20 16:53 97.5 60 16 118/70 (86) 97 Room Air Sp02 EP Interpretation: reviewed, normal General Appearance: no apparent distress, alert, GCS 15, non-toxic, other - Disheveled Head: normocephalic, atraumatic Eyes: bilateral eye normal inspection, bilateral eye PERRL ENT: moist mucus membranes Neck: full range of motion, supple Respiratory: normal breath sounds, no respiratory distress, no accessory muscle use Cardiovascular #1: regular rate, rhythm Gastrointestinal: non tender, soft, no guarding, no rebound Rectal: deferred Musculoskeletal: normal range of motion Neurologic: pulp maker III-XII nml as tested, oriented x3 Psychiatric: no suicidal/homicidal ideation Skin: no rash Lymphatic: no adenopathy Procedures Critical Care Time Critical Care Time Total critical care time: Approximately 35 minutes. Due to a high probability of clinically significant, life threatening deterioration, the patient required my highest level of preparedness to intervene emergently and I personally spent this critical care time directly and personally managing the patient. This critical care time included obtaining a history; examining the patient; pulse oximetry; ordering and review of studies; arranging urgent treatment with development of a management plan; evaluation of patient's response to treatment; frequent reassessment; and, discussions with other providers.This critical care time was performed to assess and manage the high probability of imminent, life- threatening deterioration that could result in multi-organ failure. It was exclusive of separately billable procedures and treating other patients and teaching time. Please see MDM section and the rest of the note for further information on patient assessment and treatment. Medical Decision Making Diagnostic Impression: Primary Impression: Sepsis ER Course Patient declining any radiologic examinations. He is declining a CAT scan of his head. I explained to him that I am worried about a bleed around his brain due to his fall. He is also declining a chest x-ray. EKG Diagnostic Results Troponin ordered: Yes When was troponin ordered?: Apr 19, 2020 EKG Time: 17:19 EP Interpretation: Ysabel Schneider MD Rate: bradycardiac - 57 bpm Rhythm: other - Sinus bradycardia ST Segments: no acute changes ASA given to the pt in ED: No Rhythm Strip Diag. Results Rhythm Strip Time: 17:25 EP Interpretation: yes - Ysabel Schneider MD 2 years after Rate: 59 bpm Rhythm: no PVC's, no ectopy, other - Sinus bradycardia Chest X-Ray Diagnostic Results Chest X-Ray Diagnostic Results : Chest X-Ray Ordered: Yes # of Views/Limited/Complete: 1 View Indication: Chest Pain Interpretation: no effusion, no pneumothorax, no acute cardiopulmonary disease, other - cardiomegaly Impression: No acute disease Electronically Signed by: Ysabel Schneider MD Last Vital Signs Date Time Temp Pulse Resp B/P (MAP) Pulse Ox O2 Delivery O2 Flow Rate FiO2 04/19/20 16:53 97.5 60 16 118/70 (86) 97 Room Air Disposition: ADMITTED INPATIENT Condition: Critical Additional Instructions: Please note that this report is being documented using DRAGON technology. This can lead to erroneous entry secondary to incorrect interpretation by the dictating instrument. Sepsis Event Note Evaluation Current Stage of Sepsis: Sepsis Possible Source: Unknown Focused Exam Allergies: Coded Allergies: No Known Allergies (Unverified , 04/28/14) Date Exam Occurred: Apr 19, 2020 Time Exam Occurred: 20:25 Laboratory Studies Laboratory Tests Test 04/19/20 18:06 White Blood Count 3.6 K/UL (4.8-10.8) L Red Blood Count 3.79 M/UL (4.70-6.10) L Hemoglobin 13.5 G/DL (14.2-18.0) L Hematocrit 40.8 % (42.0-52.0) L Mean Corpuscular Volume 108 FL (80-99) H Mean Corpuscular Hemoglobin 35.7 PG (27.0-31.0) H Mean Corpuscular Hemoglobin Concent 33.2 G/DL (32.0-36.0) Red Cell Distribution Width 13.8 % (11.6-14.8) Platelet Count 254 K/UL (150-450) Mean Platelet Volume 7.3 FL (6.5-10.1) Neutrophils (%) (Auto) 37.9 % (45.0-75.0) L Lymphocytes (%) (Auto) 48.8 % (20.0-45.0) H Monocytes (%) (Auto) 9.7 % (1.0-10.0) Eosinophils (%) (Auto) 0.7 % (0.0-3.0) Basophils (%) (Auto) 2.9 % (0.0-2.0) H Prothrombin Time 11.7 SEC (9.30-11.50) H Prothromb Time International Ratio 1.1 (0.9-1.1) Activated Partial Thromboplast Time 28 SEC (23-33) D-Dimer 0.57 mg/L FEU (0.00-0.49) H Urine Color Pending Urine Appearance Pending Urine pH Pending Urine Specific [place] Pending Urine Protein Pending Urine Glucose (UA) Pending Urine Ketones Pending Urine Blood Pending Urine Nitrite Pending Urine Bilirubin Pending Urine Urobilinogen Pending Urine Leukocyte Esterase Pending Sodium Level 138 MMOL/L (136-145) Potassium Level 4.4 MMOL/L (3.5-5.1) Chloride Level 101 MMOL/L (98-107) Carbon Dioxide Level 28 MMOL/L (21-32) Anion Gap 9 mmol/L (5-15) Blood Urea Nitrogen 10 mg/dL (7-18) Creatinine 0.7 MG/DL (0.55-1.30) Estimat Glomerular Filtration Rate > 60 mL/min (>60) Glucose Level 87 MG/DL (74-106) Lactic Acid Level 3.30 mmol/L (0.4-2.0) H Calcium Level 9.0 MG/DL (8.5-10.1) Magnesium Level 1.3 MG/DL (1.8-2.4) L Ferritin 273 NG/ML (8-388) Total Bilirubin 0.6 MG/DL (0.2-1.0) Aspartate Amino Transf (AST/SGOT) 94 U/L (15-37) H Alanine Aminotransferase (ALT/SGPT) 72 U/L (12-78) Alkaline Phosphatase 51 U/L (46-116) Lactate Dehydrogenase 333 U/L (81-234) H Total Creatine Kinase 185 U/L (26-308) Troponin I 0.000 ng/mL (0.000-0.056) C-Reactive Protein, Quantitative < 0.4 mg/dL (0.00-0.90) Pro-B-Type Natriuretic Peptide 55 pg/mL (0-125) Total Protein 6.5 G/DL (6.4-8.2) Albumin 3.1 G/DL (3.4-5.0) L Globulin 3.4 g/dL Albumin/Globulin Ratio 0.9 (1.0-2.7) L Vital Signs Last 24 Hour Vital Signs Date Time Temp Pulse Resp B/P (MAP) Pulse Ox O2 Delivery O2 Flow Rate FiO2 04/19/20 19:07 97.1 75 20 112/79 100 Room Air 04/19/20 19:07 75 20 Room Air 04/19/20 18:53 94 20 125/79 100 04/19/20 16:53 97.5 60 16 118/70 (86) 97 Room Air Respiratory Exam: Clear Cardiovascular Exam: RRR Capillary Refill: Less Than 2 Seconds Peripheral Pulse: Ysabel Mckeon M.D. Apr 19, 2020 17:29
[2020-04-19] MEDS ORDERED: LORazepam Inj 2mg/ml 1ml IV ONE (17:30)
[2020-04-19 19:07] VITALS: BP 112/79
[2020-04-19 19:18] LABS: BASOPHILS % (AUTO) 2.9 % (0.0-2.0); EOSINOPHILS % (AUTO) 0.7 % (0.0-3.0); HEMATOCRIT 40.8 % (42.0-52.0); HEMOGLOBIN 13.5 G/DL (14.2-18.0); LYMPHOCYTES % (AUTO) 48.8 % (20.0-45.0); MEAN CORPUSCULAR VOLUME 108 FL (80-99); MONOCYTES % (AUTO) 9.7 % (1.0-10.0); NEUTROPHILS % (AUTO) 37.9 % (45.0-75.0); PLATELET COUNT 254 K/UL (150-450); RED BLOOD COUNT 3.79 M/UL (4.70-6.10); RED CELL DISTRIBUTION WIDTH 13.8 % (11.6-14.8); WHITE BLOOD COUNT 3.6 K/UL (4.8-10.8)
[2020-04-19 19:25] LABS: INR 1.1 (0.9-1.1)
--- NOTE | 2020-04-19 19:26 | NUR ---
Patient admitted to facility reporting that he has the shakes and need medication. Medicated and tolerated well. 2 Addendum: 04/19/20 at 1927 by RICKEY Patient admitted to ER reporting that he has the shakes and need medication. AAOX4. 20G PI placed to right upper arm. All medication given and tolerated. He reports that he is not homeless, he just needs something to eat. Awaiting banana bag from the pharmacy for administration. Report handed over to physician chief of pathology.
[2020-04-19 19:30] VITALS: BP 135/85
--- NOTE | 2020-04-19 19:30 | NUR ---
ED Nurse Note: Recived report from Gema BRAN. Pt is resting comfrotably, asking for a sandwhich. His vitals are stable as documented on RA. IV meds infusing as ordered. Shows no signs of distress.
[2020-04-19 19:52] LABS: ALANINE AMINOTRANSFERASE 72 U/L (12-78); ALBUMIN 3.1 G/DL (3.4-5.0); ALBUMIN/GLOBULIN RATIO 0.9 (1.0-2.7); ALKALINE PHOSPHATASE 51 U/L (46-116); ASPARTATE AMINO TRANSFERASE 94 U/L (15-37); BILIRUBIN,TOTAL 0.6 MG/DL (0.2-1.0); CREATINE KINASE 185 U/L (26-308); FERRITIN 273 NG/ML (8-388); LACTATE DEHYDROGENASE 333 U/L (81-234)
[2020-04-19] MEDS ORDERED: Azithromycin 500 MG in NS 275 ML IV ONE (20:00)
[2020-04-19] MEDS ORDERED: Cefepime HCl 2 GM in D5W 55 ML IVPB ONE (20:00)
[2020-04-19 20:10] LABS: ANION GAP 9 mmol/L (5-15); BLOOD UREA NITROGEN 10 mg/dL (7-18); CARBON DIOXIDE 28 MMOL/L (21-32); CHLORIDE 101 MMOL/L (98-107); POTASSIUM 4.4 MMOL/L (3.5-5.1); SODIUM 138 MMOL/L (136-145)
[2020-04-19 20:11] LABS: CREATININE 0.7 MG/DL (0.55-1.30)
[2020-04-19] MEDS ORDERED: Omnipaque 350 100ml vial INJ PRN (20:45)
[2020-04-19 21:00] VITALS: BP 126/79
--- NOTE | 2020-04-19 21:02 | NUR ---
ED Nurse Note: Pt is a very difficult stick. Multiple attempts and nurses made attempts. Pt is agreable to care. vitals are stabl on RA. Pt is able to eat a sandwich with no adverse effects.
[2020-04-19 22:02] LABS: APPEARANCE,URINE CLEAR; BILIRUBIN, URINE NEGATIVE (NEGATIVE); GLUCOSE, URINE (UA) NEGATIVE (NEGATIVE); KETONES,URINE 1+ (NEGATIVE); LEUKOCYTE ESTERASE ,URINE NEGATIVE (NEGATIVE); NITRITE,URINE NEGATIVE (NEGATIVE); PH,URINE 5 (4.5-8.0); PROTEIN,URINE NEGATIVE (NEGATIVE); UROBILINOGEN,URINE 1 MG/DL (0.0-1.0)
[2020-04-19 22:03] LABS: COLOR,URINE YELLOW
--- NOTE | 2020-04-19 22:50 | Diagnostic Imaging Report ---
EXAM: CT Angiography Chest With Intravenous Contrast CLINICAL HISTORY: SOB TECHNIQUE: Axial computed tomographic angiography images of the chest with intravenous contrast. CTDI is 9.4 mGy and DLP is 354.2 mGy-cm. One or more of the following dose reduction techniques were used: automated exposure control, adjustment of the mA and/or kV according to patient size, use of iterative reconstruction technique. MIP reconstructed images were created and reviewed. COMPARISON: No relevant prior studies available. FINDINGS: Limitations: Limited due to motion. Pulmonary arteries: No definite PE visualized. Aorta: No aortic dissection. Lungs: No focal consolidation. Pleural space: Unremarkable. No significant effusion. No pneumothorax. Heart: Unremarkable. Bones/joints: Right inferior scapular fracture, please correlate clinically for acuity. Subacute/chronic rib fractures. Soft tissues: Unremarkable. Lymph nodes: Unremarkable. IMPRESSION: 1. Limited due to motion. 2. No definite PE visualized. 3. No focal consolidation. 4. Right inferior scapular fracture, please correlate clinically for acuity.
--- NOTE | 2020-04-19 23:15 | NUR ---
ED Nurse Note: Gave report to Pasquale BRAN
--- NOTE | 2020-04-19 23:35 | NUR ---
TRANSFER TO FLOOR: Patient transferred to as ordered, per ER MD. Report given to Pasquale BRAN. Belongings sent with pt. Transferd with 2 RN on tele [phone]
--- NOTE | 2020-04-19 23:45 | NUR ---
NURSE NOTES: Pt. received from YINA Archibald. Pt. AAOx4, on room air breathing even and unlabored, no indications of respiratory distress, no complaints of pain VS stable, skin intact. Pt. placed on monitor with SR. IV noted right AC 20g intact and patent, left wrist 20g intact and patent, both saline locked. Belongings inventoried, wine placed at nurses station. Pt. oriented to room and use of call light for assistance, pt. acknowledged and verbalized understanding. Bed low and locked, side rails x3 up, bed alarm active, and call light in reach. Will follow up with primary for admission orders.
[2020-04-20] VITALS: BP 125/71
[2020-04-20] MEDS: Miralax 17gm pkt ORAL SCH ×2 (01:37→21:13)
[2020-04-20] MEDS: D5 1/2NS w/KCl 20mEq 1,000 ML IV SCH ×2 (01:37→15:58)
[2020-04-20 04:00] VITALS: BP 136/73
[2020-04-20 05:27] LABS: BASOPHILS % (AUTO) 2.8 % (0.0-2.0); EOSINOPHILS % (AUTO) 0.9 % (0.0-3.0); HEMATOCRIT 34.2 % (42.0-52.0); HEMOGLOBIN 11.6 G/DL (14.2-18.0); LYMPHOCYTES % (AUTO) 40.8 % (20.0-45.0); MEAN CORPUSCULAR VOLUME 106 FL (80-99); MONOCYTES % (AUTO) 12.9 % (1.0-10.0); NEUTROPHILS % (AUTO) 42.7 % (45.0-75.0); PLATELET COUNT 223 K/UL (150-450); RED BLOOD COUNT 3.24 M/UL (4.70-6.10); RED CELL DISTRIBUTION WIDTH 13.5 % (11.6-14.8); WHITE BLOOD COUNT 3.8 K/UL (4.8-10.8)
[2020-04-20 05:38] LABS: ALANINE AMINOTRANSFERASE 62 U/L (12-78); ALBUMIN 3.3 G/DL (3.4-5.0); ALKALINE PHOSPHATASE 55 U/L (46-116); ANION GAP 10 mmol/L (5-15); ASPARTATE AMINO TRANSFERASE 67 U/L (15-37); BILIRUBIN,TOTAL 0.5 MG/DL (0.2-1.0); BLOOD UREA NITROGEN 7 mg/dL (7-18); CALCIUM 8.6 MG/DL (8.5-10.1); CARBON DIOXIDE 26 MMOL/L (21-32); CHLORIDE 104 MMOL/L (98-107); CREATININE 0.7 MG/DL (0.55-1.30); PHOSPHORUS 3.2 MG/DL (2.5-4.9); POTASSIUM 4.2 MMOL/L (3.5-5.1); SODIUM 140 MMOL/L (136-145)
--- NOTE | 2020-04-20 07:22 | NUR ---
NURSE HAND-OFF REPORT: Important Events on Shift:[pt. stable without acute events overnight] Patient Status: awake, stable Diet: regular Pending Orders: na Pending Results/Labs:na Pending MD notification:na Latest Vital Signs: Temperature 99.0 , Pulse 92 , B/P 136 /73 , Respiratory Rate 20 , O2 SAT 95 , Room Air, O2 Flow Rate . Vital Sign Comment: stable EKG Rhythm: SR w/BBB Rhythm change?: N MD Notified?: - MD Response: Latest Leal Fall Score: 70 Fall Risk: High Risk Safety Measures: Call light Within Reach, Bed Alarm Zone 1, Side Rails Side Rails x3, Bed position Low and Locked. Fall Precautions: Patient Fall Education Report given to YINA Myers.
--- NOTE | 2020-04-20 07:23 | NUR ---
NURSE NOTES: Received patient in bed awake. No SOB or acute distress. IV lines intact and patent, IVF of D5 1/2 NS + 20meq KCl x 75cc/hr infusing. HOB elevated. Bed locked in low position. Call light within reach. Will continue plan of care.
[2020-04-20 07:52] VITALS: BP 137/87
--- NOTE | 2020-04-20 08:48 | NUR ---
CASE MANAGEMENT:REVIEW 64 YR OLD MALE BIBA FROM [facility] CC: SOB AND DRUNK SI: SEPSIS. ACUTE ALCOHOLIC INTOXICATION 97.6 60 16 118/70 97% ON RA WBC-3.6 MAG-1.3 IS: IV BANANA BAG X1 1L NS BOLUS X2 IV AZITHROMYCIN X1 IV CEFEPIME X1 IV MAG SULFATE X1 CTA CHEST CXR CT HEAD BLOOD CX : ADMITTED TO TELEMETRY UNIT DCP: SOCIAL SERVICE CONSULT
[2020-04-20] MEDS: Thiamine 100mg tab ORAL SCH (08:55)
[2020-04-20 11:36] VITALS: BP 130/88
--- NOTE | 2020-04-20 11:56 | NUR ---
INSULATION SUPERVISOR NOTE SW met w/ pt and completed the psychosocial assessment. PT reports he resides w/ his brother Alvin Quinones at [address], [place] [address]. PT denies homelessness. Pt is single, and has two adult children in contact. PT shares he took a bus to play basketball in [place]. Pt has hx of multiple ER visits at [facility]. His last ER visit was in February 2020. UDS N/A. Pt denies tobacco use. Pt admits he abuses ETOH, 3-4 bottles of white wine daily. SW discussed the negative impact of ETOH abuse in his lifestyle and health. Pt verbalized understanding. However, pt does not appear to be motivated for tx intervention. SW offered substance abuse rehab resource and encouraged pt to consider but pt refused. Pt shares that he will attempt to cut his alcohol consumption by himself. Pt reports he is ambulatory w/o DME but he has hx of multiple falls d/t unsteady gait. His last fall was yesterday. Pt does not want to use DME. SW explained the risk of fall and its impact on his health/mobility. PT evaluation is recommended to evaluate pt's mobility. Pt does not have any social psychologist concern/needs at this time. SW to F/U as needed. emergency contact: Alvin Quinones (brother) [phone]
--- NOTE | 2020-04-20 12:58 | History & Physical ---
History and Physical History & Physicial Sabino Steve MD Apr 20, 2020 12:58
--- NOTE | 2020-04-20 14:43 | Diagnostic Imaging Report ---
Indication: Cough Technique: One view of the chest Comparison: 01/05/2020 Findings: The heart is enlarged. The aorta is elongated and tortuous. The lungs and pleural spaces are clear. The trachea appears deviated to the left. This is presumably an artifact of positioning as no mediastinal mass is demonstrated on subsequent CT scan. Impression: Cardiomegaly. No acute process
--- NOTE | 2020-04-20 15:15 | Consultation ---
History of Present Illness General Date patient seen: Apr 20, 2020 Reason for Hospitalization: Dyspnea/Respdistress Present Illness HPI This is 64-year-old male past medical history of alcohol abuse who presents to the ER complaining of shortness of breath. Patient states that his shortness of breath began today due to alcohol withdrawals. He states that his last drink was last night. Patient states that he also fell and hit his head last night he denies any loss of consciousness. Any chest pain. He denies any cough. He denies any abdominal pain nausea or vomiting. Patient was brought in from the store by EMS. Admitted for the care management. CT identified a scapular fracture and acuity unknown therefore surgery called to evaluate assist with care for trauma. Patient seen, patient evaluate, chart reviewed. States unsure of fracture not aware of it prior. No recent altercation or pain from the area. Allergies: Coded Allergies: No Known Allergies (Unverified , 04/28/14) COVID-19 Screening Contact w/high risk pt: No Experienced COVID-19 symptoms?: Yes Coronavirus symptoms experienc: Shortness of Breath, Muscle or Body Aches Medication History Scheduled Folic Acid* (Folic Acid*), 1 MG ORAL DAILY Thiamine Hcl* (Vitamin B-1*), 100 MG ORAL DAILY Patient History History Provided By: Patient, Medical Record, PMD Healthcare decision maker Resuscitation status Advanced Directive on File Past Medical/Surgical History Past Medical/Surgical History: (1) Injury of lower extremity (2) Injury of lower extremity (3) Injury of lower extremity (4) Contusion of mid back (5) Refusal of care by patient (6) Contusion of leg, right (7) Alcohol abuse (8) Pancreatitis (9) Contusion of lower leg, right (10) Status post fracture of right tibia (11) Abrasion (12) Encounter for generalized patient complaints (13) Drug-seeking behavior (14) Injury of lower extremity (15) Alcohol intoxication (16) Chronic pain (17) Chronic leg pain (18) Alcohol abuse (19) Acute alcoholic intoxication (20) Sepsis Review of Systems Review of Symptoms General ROS: no weight loss or fever Psychological ROS: no depression or mood changes, no memory loss Ophthalmic ROS: no visual changes or eye irritation ENT ROS: no nasal congestion, hearing loss, dizziness Allergy and Immunology ROS: no allergic symptoms or urticaria Hematological and Lymphatic ROS: no swollen glands, unusual bleeding or bruising Endocrine ROS: no polyuria, polydipsia, weight changes, temperature intolerance Respiratory ROS: no cough, shortness of breath, or wheezing Cardiovascular ROS: no chest pain or dyspnea on exertion Gastrointestinal ROS: denies abdominal pain, bright red blood in stool. Musculoskeletal ROS: no myalgias or arthralgias Neurological ROS: no TIA or stroke symptoms Dermatological ROS: no new or changing skin lesions, rashes or pruritis Physical Exam Physical Exam General appearance: alert, cooperative, no distress, appears stated age Head: Normocephalic, without obvious abnormality, atraumatic Eyes: conjunctivae/corneas clear. PERRL, EOM's intact. Fundi benign Throat: Lips, mucosa, and tongue normal. Teeth and gums normal Neck: supple, symmetrical, trachea midline, no adenopathy, thyroid: not enlarged, symmetric, no tenderness/mass/nodules, no carotid bruit and no JVD Lungs: clear to auscultation bilaterally Heart: regular rate and rhythm, S1, S2 normal, no murmur, click, rub or gallop Abdomen: soft, non-tender. Bowel sounds normal. No masses, no organomegaly Extremities: extremities normal, atraumatic, no cyanosis or edema Pulses: 2+ and symmetric Skin: Skin color, texture, turgor normal. No rashes or lesions Neurologic: Grossly normal Last 24 Hour Vital Signs Date Time Temp Pulse Resp B/P (MAP) Pulse Ox O2 Delivery O2 Flow Rate FiO2 04/20/20 11:36 96.7 103 19 130/88 (102) 93 04/20/20 09:00 Room Air 04/20/20 08:00 85 04/20/20 07:52 96.8 104 22 137/87 (104) 92 04/20/20 04:00 99.0 92 20 136/73 (94) 95 04/20/20 04:00 92 04/20/20 00:52 Room Air 04/20/20 00:00 86 04/20/20 00:00 98.1 86 18 125/71 (89) 96 04/19/20 23:35 98.3 90 16 130/82 99 Room Air 04/19/20 21:00 98.3 89 17 126/79 97 Room Air 04/19/20 19:30 98.2 82 16 135/85 97 Room Air 04/19/20 19:07 97.1 75 20 112/79 100 Room Air 04/19/20 19:07 75 20 Room Air 04/19/20 18:53 94 20 125/79 100 04/19/20 16:53 97.5 60 16 118/70 (86) 97 Room Air Intake and Output 04/19/20 04/20/20 19:00 07:00 Intake Total 700 ml Output Total 800 ml Balance -100 ml Intake Oral 200 ml IV Total 450 ml Other 50 ml Output Urine Total 800 ml # Voids 5 Laboratory Tests Test 04/19/20 18:06 04/19/20 21:00 04/19/20 21:10 04/20/20 04:50 White Blood Count 3.6 K/UL (4.8-10.8) L 3.8 K/UL (4.8-10.8) L Red Blood Count 3.79 M/UL (4.70-6.10) L 3.24 M/UL (4.70-6.10) L Hemoglobin 13.5 G/DL (14.2-18.0) L 11.6 G/DL (14.2-18.0) L Hematocrit 40.8 % (42.0-52.0) L 34.2 % (42.0-52.0) L Mean Corpuscular Volume 108 FL (80-99) H 106 FL (80-99) H Mean Corpuscular Hemoglobin 35.7 PG (27.0-31.0) H 35.7 PG (27.0-31.0) H Mean Corpuscular Hemoglobin Concent 33.2 G/DL (32.0-36.0) 33.8 G/DL (32.0-36.0) Red Cell Distribution Width 13.8 % (11.6-14.8) 13.5 % (11.6-14.8) Platelet Count 254 K/UL (150-450) 223 K/UL (150-450) Mean Platelet Volume 7.3 FL (6.5-10.1) 6.9 FL (6.5-10.1) Neutrophils (%) (Auto) 37.9 % (45.0-75.0) L 42.7 % (45.0-75.0) L Lymphocytes (%) (Auto) 48.8 % (20.0-45.0) H 40.8 % (20.0-45.0) Monocytes (%) (Auto) 9.7 % (1.0-10.0) 12.9 % (1.0-10.0) H Eosinophils (%) (Auto) 0.7 % (0.0-3.0) 0.9 % (0.0-3.0) Basophils (%) (Auto) 2.9 % (0.0-2.0) H 2.8 % (0.0-2.0) H Prothrombin Time 11.7 SEC (9.30-11.50) H Prothromb Time International Ratio 1.1 (0.9-1.1) Activated Partial Thromboplast Time 28 SEC (23-33) D-Dimer 0.57 mg/L FEU (0.00-0.49) H Sodium Level 138 MMOL/L (136-145) 140 MMOL/L (136-145) Potassium Level 4.4 MMOL/L (3.5-5.1) 4.2 MMOL/L (3.5-5.1) Chloride Level 101 MMOL/L (98-107) 104 MMOL/L (98-107) Carbon Dioxide Level 28 MMOL/L (21-32) 26 MMOL/L (21-32) Anion Gap 9 mmol/L (5-15) 10 mmol/L (5-15) Blood Urea Nitrogen 10 mg/dL (7-18) 7 mg/dL (7-18) Creatinine 0.7 MG/DL (0.55-1.30) 0.7 MG/DL (0.55-1.30) Estimat Glomerular Filtration Rate > 60 mL/min (>60) > 60 mL/min (>60) Glucose Level 87 MG/DL (74-106) 79 MG/DL (74-106) Lactic Acid Level 3.30 mmol/L (0.4-2.0) H 2.30 mmol/L (0.66-2.22) H 1.30 mmol/L (0.4-2.0) Calcium Level 9.0 MG/DL (8.5-10.1) 8.6 MG/DL (8.5-10.1) Magnesium Level 1.3 MG/DL (1.8-2.4) L 2.2 MG/DL (1.8-2.4) Ferritin 273 NG/ML (8-388) Total Bilirubin 0.6 MG/DL (0.2-1.0) 0.5 MG/DL (0.2-1.0) Aspartate Amino Transf (AST/SGOT) 94 U/L (15-37) H 67 U/L (15-37) H Alanine Aminotransferase (ALT/SGPT) 72 U/L (12-78) 62 U/L (12-78) Alkaline Phosphatase 51 U/L (46-116) 55 U/L (46-116) Lactate Dehydrogenase 333 U/L (81-234) H Total Creatine Kinase 185 U/L (26-308) Troponin I 0.000 ng/mL (0.000-0.056) C-Reactive Protein, Quantitative < 0.4 mg/dL (0.00-0.90) Pro-B-Type Natriuretic Peptide 55 pg/mL (0-125) Total Protein 6.5 G/DL (6.4-8.2) 6.5 G/DL (6.4-8.2) Albumin 3.1 G/DL (3.4-5.0) L 3.3 G/DL (3.4-5.0) L Globulin 3.4 g/dL 3.2 g/dL Albumin/Globulin Ratio 0.9 (1.0-2.7) L 1.0 (1.0-2.7) Urine Color Yellow Urine Appearance Clear Urine pH 5 (4.5-8.0) Urine Specific [place] 1.020 (1.005-1.035) Urine Protein Negative (NEGATIVE) Urine Glucose (UA) Negative (NEGATIVE) Urine Ketones 1+ (NEGATIVE) H Urine Blood Negative (NEGATIVE) Urine Nitrite Negative (NEGATIVE) Urine Bilirubin Negative (NEGATIVE) Urine Urobilinogen 1 MG/DL (0.0-1.0) H Urine Leukocyte Esterase Negative (NEGATIVE) Phosphorus Level 3.2 MG/DL (2.5-4.9) Height (Feet): 5 Height (Inches): 11.00 Weight (Pounds): 169 Medications Current Medications Medications (Trade) Dose Ordered Sig/Lc Route PRN Reason Start Time Stop Time Status Last Admin Dose Admin Dextrose/ Electrolytes 1,000 ml @ 75 mls/hr [id number] IV 04/20/20 02:00 05/20/20 01:59 04/20/20 01:37 Folic Acid (Folate) 1 mg DAILY ORAL 04/20/20 09:00 05/20/20 08:59 04/20/20 08:55 Iohexol (Omnipaque 350 100ml) 100 ml NOW PRN INJ Radiology Procedure 04/19/20 20:45 04/21/20 20:44 Lorazepam (Ativan 2mg/ml 1ml) 0.5 mg Q4H PRN IV For Anxiety 04/20/20 00:30 04/27/20 00:29 Ondansetron HCl (Zofran) 4 mg Q4H PRN IVP Nausea & Vomiting 04/20/20 00:30 05/20/20 00:29 Pantoprazole (Protonix) 40 mg DAILY ORAL 04/20/20 09:00 05/20/20 08:59 04/20/20 08:55 Polyethylene Glycol (Miralax) 17 gm QHS ORAL 04/20/20 00:45 05/20/20 00:44 04/20/20 01:37 Thiamine HCl (Vitamin B1) 100 mg DAILY ORAL 04/20/20 09:00 05/20/20 08:59 04/20/20 08:55 Assessment/Plan Problem List: (1) Scapula fracture Assessment & Plan: EtOH use recent fall CT with fracture. Patient does not recall trauma or injury identifiable. Does not have history of known fracture in the past of It. On examination fairly benign at this time. Plan for para today. No acute surgical invention indicated recommend at this time. Scaphoid fracture can be monitored for now. Outpatient follow-up with Ortho if desired. Okay for diet. Follow with recommendations thank you let me participate patient's care pulmonary arteries: No definite PE visualized. Aorta: No aortic dissection. Lungs: No focal consolidation. Pleural space: Unremarkable. No significant effusion. No pneumothorax. Heart: Unremarkable. Bones/joints: Right inferior scapular fracture, please correlate clinically for acuity. Subacute/chronic rib fractures. Soft tissues: Unremarkable. Lymph nodes: Unremarkable. IMPRESSION: 1. Limited due to motion. 2. No definite PE visualized. 3. No focal consolidation. 4. Right inferior scapular fracture, please correlate clinically for acuity. ICD Codes: S42.109A - Fracture of unspecified part of scapula, unspecified shoulder, initial encounter for closed fracture SNOMED: 0432611 (2) Acute alcoholic intoxication ICD Codes: F10.929 - Alcohol use, unspecified with intoxication, unspecified SNOMED: 02085055, 7316442 (3) Alcohol intoxication ICD Codes: F10.929 - Alcohol use, unspecified with intoxication, unspecified SNOMED: 42827918 (4) Alcohol abuse ICD Codes: F10.10 - Alcohol abuse, uncomplicated SNOMED: 79623546 (5) Alcohol abuse ICD Codes: F10.10 - Alcohol abuse, uncomplicated SNOMED: 63059871 (6) Pancreatitis ICD Codes: K85.9 - Acute pancreatitis, unspecified SNOMED: 56335029 (7) Sepsis ICD Codes: A41.9 - Sepsis, unspecified organism SNOMED: 82438407 (8) Abrasion ICD Codes: T14.8 - Other injury of unspecified body region SNOMED: 284996488 (9) Chronic pain ICD Codes: G89.29 - Other chronic pain SNOMED: 11544276 (10) Drug-seeking behavior ICD Codes: F19.10 - Other psychoactive substance abuse, uncomplicated SNOMED: 713950812 (11) Chronic leg pain ICD Codes: M79.606 - Pain in leg, unspecified; G89.29 - Other chronic pain SNOMED: 56882350 (12) Contusion of leg, right ICD Codes: S80.11XA - Contusion of right lower leg, initial encounter SNOMED: 86185579 (13) Contusion of lower leg, right ICD Codes: S80.11XA - Contusion of right lower leg, initial encounter SNOMED: 14761879 (14) Contusion of mid back ICD Codes: S20.229A - Contusion of unspecified back wall of thorax, initial encounter SNOMED: 38746721 (15) Injury of lower extremity ICD Codes: S89.90XA - Unspecified injury of unspecified lower leg, initial encounter SNOMED: 201266541 (16) Injury of lower extremity ICD Codes: S89.90XA - Unspecified injury of unspecified lower leg, initial encounter SNOMED: 601028651 (17) Injury of lower extremity ICD Codes: S89.90XA - Unspecified injury of unspecified lower leg, initial encounter SNOMED: 629951918 (18) Injury of lower extremity ICD Codes: S89.90XA - Unspecified injury of unspecified lower leg, initial encounter SNOMED: 127090893 (19) Encounter for generalized patient complaints ICD Codes: Z00.8 - Encounter for other general examination SNOMED: 192455710 (20) Refusal of care by patient ICD Codes: Z53.29 - Procedure and treatment not carried out because of patient's decision for other reasons SNOMED: 103429357 (21) Status post fracture of right tibia ICD Codes: Z87.81 - Personal history of (healed) traumatic fracture SNOMED: 673450561 Abiodun Moreno Apr 20, 2020 15:15
--- NOTE | 2020-04-20 15:19 | NUR ---
INSURANCE FAXED CLINICAL/REVIEW TO [facility] FAX [phone] TELE [phone]
[2020-04-20 16:00] VITALS: BP 131/87
--- NOTE | 2020-04-20 19:20 | NUR ---
NURSE NOTES: Received report from YINA Myers. Pt is A/O x 4 and verbally responsive.No SOB or acute distress. No pain noted. Pt has IV lines which are intact and patent. Pt RAC 20 is running IVF of D5 1/2 NS w/ 20meq KCl x 75cc/hr. Bed locked in low position [facility] side rails x2. Call light within reach. Will continue plan of care.
--- NOTE | 2020-04-20 19:47 | NUR ---
NURSE HAND-OFF REPORT: Important Events on Shift: for transfer to [facility] Patient Status: alert, pleasant Diet: reg Pending Orders: Pending Results/Labs: Pending MD notification: Latest Vital Signs: Temperature 98.8 , Pulse 101 , B/P 131 /87 , Respiratory Rate 20 , O2 SAT 94 , Room Air, O2 Flow Rate . Vital Sign Comment: EKG Rhythm: SR w/BBB Rhythm change?: N MD Notified?: - MD Response: Latest Leal Fall Score: 70 Fall Risk: High Risk Safety Measures: Call light Within Reach, Bed Alarm Zone 1, Side Rails Side Rails x2, Bed position Low and Locked. Fall Precautions: Yellow Socks Report given to Radhika BRAN.
[2020-04-20 20:00] VITALS: BP 129/85
[2020-04-20] MEDS: LORazepam Inj 2mg/ml 1ml IV PRN (21:14)
--- NOTE | 2020-04-20 22:51 | NUR ---
NURSE NOTES: Report given to YINA Gonzalez. Pt in stable condition. foundry engineer removed. Endorsed plan of care.
--- NOTE | 2020-04-20 23:00 | NUR ---
NURSE NOTES: Received report from Radhika BRAN. Patient is awake, alert and oriented x4. Belongings checked. Skin is intact. Oriented to hospital room. On room air, breathing is even and unlabored. No complains of pain or distress noted. Tremor noted and will administer ativan prn. IV right AC intact and patent with no bleeding noted. IV left hand intact with S/L. IVF running as ordered. Bed low and locked. Call light within reach. VS stable.
[2020-04-21] VITALS: BP 150/80
[2020-04-21] MEDS: LORazepam Inj 2mg/ml 1ml IV PRN ×3 (01:49→21:47)
[2020-04-21 04:00] VITALS: BP 143/76
[2020-04-21] MEDS: D5 1/2NS w/KCl 20mEq 1,000 ML IV SCH ×2 (05:25→18:22)
[2020-04-21 06:35] LABS: BASOPHILS % (AUTO) 2.4 % (0.0-2.0); HEMATOCRIT 34.8 % (42.0-52.0); LYMPHOCYTES % (AUTO) 46.1 % (20.0-45.0); MEAN CORPUSCULAR VOLUME 102 FL (80-99); MONOCYTES % (AUTO) 15.2 % (1.0-10.0); NEUTROPHILS % (AUTO) 35.3 % (45.0-75.0); PLATELET COUNT 205 K/UL (150-450); RED CELL DISTRIBUTION WIDTH 12.8 % (11.6-14.8); WHITE BLOOD COUNT 4.5 K/UL (4.8-10.8)
[2020-04-21 07:05] LABS: ALANINE AMINOTRANSFERASE 54 U/L (12-78); ALBUMIN 3.3 G/DL (3.4-5.0); ALBUMIN/GLOBULIN RATIO 0.9 (1.0-2.7); ALKALINE PHOSPHATASE 51 U/L (46-116); ANION GAP 8 mmol/L (5-15); ASPARTATE AMINO TRANSFERASE 44 U/L (15-37); BILIRUBIN,TOTAL 1.1 MG/DL (0.2-1.0); BLOOD UREA NITROGEN 7 mg/dL (7-18); CALCIUM 8.9 MG/DL (8.5-10.1); CARBON DIOXIDE 28 MMOL/L (21-32); CHLORIDE 104 MMOL/L (98-107); CREATININE 0.7 MG/DL (0.55-1.30); POTASSIUM 3.7 MMOL/L (3.5-5.1); SODIUM 140 MMOL/L (136-145)
[2020-04-21 07:10] LABS: BILIRUBIN,DIRECT 0.3 MG/DL (0.0-0.3)
[2020-04-21 07:19] LABS: PHOSPHORUS 3.9 MG/DL (2.5-4.9)
--- NOTE | 2020-04-21 07:30 | NUR ---
NURSE HAND-OFF: Important Events on Shift: Transferred from Tele Patient Status: Stable Diet: Regular Pending Orders: [] Pending Results/Labs:[] Pending MD notification:[] Latest Vital Signs: Temperature 98.1 , Pulse 71 , B/P 143 /76 , Respiratory Rate 16 , O2 SAT 97 , Room Air, O2 Flow Rate . Vital Sign Comment: VS stable Latest Leal Fall Score: 80 Fall Risk: High Risk Safety Measures: Call light Within Reach, Bed Alarm Zone 1, Side Rails Side Rails x2, Bed position Low and Locked. Fall Precautions: Yellow Socks Yellow Gown Report given to Adeel BRAN.
--- NOTE | 2020-04-21 07:49 | NUR ---
NURSE NOTES: Received am report. pt is in the bed eating breakfast, tolerates meal well. denies any chest pain and discomfort. pt is A&O X4. IV fluid running. no acute distress noted at this time. call light within reach.
[2020-04-21 08:00] VITALS: BP 143/73
[2020-04-21] MEDS: Thiamine 100mg tab ORAL SCH (08:39)
--- NOTE | 2020-04-21 09:19 | Diagnostic Imaging Report ---
EXAM: US Duplex Bilateral Lower Extremities Veins CLINICAL HISTORY: DVT TECHNIQUE: Real-time duplex ultrasound scan of the bilateral lower extremity veins integrating B-mode two-dimensional vascular structure, Doppler spectral analysis, color flow Doppler imaging and compression. COMPARISON: No relevant prior studies available. FINDINGS: Right deep veins: Unremarkable. No DVT in the right common femoral, femoral, proximal deep femoral or popliteal veins. The veins demonstrate normal color flow, are normally compressible, with normal phasic flow and/or augmentation response. Right superficial veins: Unremarkable. No thrombus in the visualized right great saphenous vein. Left deep veins: Unremarkable. No DVT in the left common femoral, femoral, proximal deep femoral or popliteal veins. The veins demonstrate normal color flow, are normally compressible, with normal phasic flow and/or augmentation response. Left superficial veins: Unremarkable. No thrombus in the visualized left great saphenous vein. Soft tissues: No acute findings. No popliteal cyst. IMPRESSION: Normal bilateral lower extremity duplex venous ultrasound.
--- NOTE | 2020-04-21 11:45 | Surgery Progress Note ---
Surgery Progress Note Subjective Additional Comments afebrile, HD stable labs okay states he has the shakes from etoh no n/v okay diet Objective Last 24 Hour Vital Signs Date Time Temp Pulse Resp B/P (MAP) Pulse Ox O2 Delivery O2 Flow Rate FiO2 04/21/20 08:00 98.1 71 19 143/73 (96) 95 04/21/20 04:00 98.1 71 16 143/76 (98) 97 04/21/20 02:19 76 17 150/80 98 04/21/20 01:49 76 17 150/80 98 04/21/20 00:00 97.9 76 17 150/80 (103) 98 04/20/20 21:00 Room Air 04/20/20 20:00 71 04/20/20 20:00 98.2 96 129/85 (100) 04/20/20 16:00 81 04/20/20 16:00 98.8 101 20 131/87 (102) 94 04/20/20 12:00 82 I&O Intake and Output 04/20/20 04/21/20 19:00 07:00 Intake Total 140 ml 750 ml Output Total 1200 ml Balance -1060 ml 750 ml Intake Oral 140 ml IV Total 750 ml Output Urine Total 1200 ml # Voids 3 2 Cardiovascular: RSR Respiratory: clear Abdomen: soft, flat, non-tender, present bowel sounds, non-distended Extremities: no edema, no tenderness, no cyanosis Laboratory Tests Test 04/21/20 05:45 White Blood Count 4.5 K/UL (4.8-10.8) L Red Blood Count 3.40 M/UL (4.70-6.10) L Hemoglobin 12.0 G/DL (14.2-18.0) L Hematocrit 34.8 % (42.0-52.0) L Mean Corpuscular Volume 102 FL (80-99) H Mean Corpuscular Hemoglobin 35.1 PG (27.0-31.0) H Mean Corpuscular Hemoglobin Concent 34.4 G/DL (32.0-36.0) Red Cell Distribution Width 12.8 % (11.6-14.8) Platelet Count 205 K/UL (150-450) Mean Platelet Volume 8.0 FL (6.5-10.1) Neutrophils (%) (Auto) 35.3 % (45.0-75.0) L Lymphocytes (%) (Auto) 46.1 % (20.0-45.0) H Monocytes (%) (Auto) 15.2 % (1.0-10.0) H Eosinophils (%) (Auto) 1.0 % (0.0-3.0) Basophils (%) (Auto) 2.4 % (0.0-2.0) H Sodium Level 140 MMOL/L (136-145) Potassium Level 3.7 MMOL/L (3.5-5.1) Chloride Level 104 MMOL/L (98-107) Carbon Dioxide Level 28 MMOL/L (21-32) Anion Gap 8 mmol/L (5-15) Blood Urea Nitrogen 7 mg/dL (7-18) Creatinine 0.7 MG/DL (0.55-1.30) Estimat Glomerular Filtration Rate > 60 mL/min (>60) Glucose Level 91 MG/DL (74-106) Calcium Level 8.9 MG/DL (8.5-10.1) Phosphorus Level 3.9 MG/DL (2.5-4.9) Magnesium Level 1.8 MG/DL (1.8-2.4) Total Bilirubin 1.1 MG/DL (0.2-1.0) H Direct Bilirubin 0.3 MG/DL (0.0-0.3) Aspartate Amino Transf (AST/SGOT) 44 U/L (15-37) H Alanine Aminotransferase (ALT/SGPT) 54 U/L (12-78) Alkaline Phosphatase 51 U/L (46-116) Total Protein 6.8 G/DL (6.4-8.2) Albumin 3.3 G/DL (3.4-5.0) L Globulin 3.5 g/dL Albumin/Globulin Ratio 0.9 (1.0-2.7) L Thyroid Stimulating Hormone (TSH) 16.109 uiU/mL (0.358-3.740) Plan Problems: (1) Scapula fracture Assessment & Plan: EtOH use recent fall CT with fracture. Patient does not recall trauma or injury identifiable. Does not have history of known fracture in the past of It. On examination fairly benign at this time. Plan for para today. No acute surgical invention indicated recommend at this time. Scaphoid fracture can be monitored for now. Outpatient follow-up with Ortho if desired. Okay for diet. Follow with recommendations thank you let me participate patient's care pulmonary arteries: No definite PE visualized. Aorta: No aortic dissection. Lungs: No focal consolidation. Pleural space: Unremarkable. No significant effusion. No pneumothorax. Heart: Unremarkable. Bones/joints: Right inferior scapular fracture, please correlate clinically for acuity. Subacute/chronic rib fractures. Soft tissues: Unremarkable. Lymph nodes: Unremarkable. IMPRESSION: 1. Limited due to motion. 2. No definite PE visualized. 3. No focal consolidation. 4. Right inferior scapular fracture, please correlate clinically for acuity. (2) Acute alcoholic intoxication (3) Alcohol intoxication (4) Alcohol abuse (5) Alcohol abuse (6) Pancreatitis (7) Sepsis (8) Abrasion (9) Chronic pain (10) Drug-seeking behavior (11) Chronic leg pain (12) Contusion of leg, right (13) Contusion of lower leg, right (14) Contusion of mid back (15) Injury of lower extremity (16) Injury of lower extremity (17) Injury of lower extremity (18) Injury of lower extremity (19) Encounter for generalized patient complaints (20) Refusal of care by patient (21) Status post fracture of right tibia Abiodun Moreno Apr 21, 2020 11:45
[2020-04-21 12:00] VITALS: BP 138/70
--- NOTE | 2020-04-21 13:52 | NUR ---
INSURANCE FAXED CLINICAL TO [facility] FAX [phone] TELE [phone]
[2020-04-21 16:00] VITALS: BP 154/93
--- NOTE | 2020-04-21 16:04 | Diagnostic Imaging Report ---
EXAM: XR Lumbosacral Spine, 2 or 3 Views CLINICAL HISTORY: ALOC TECHNIQUE: Frontal and lateral views of the lumbar spine and sacrum. COMPARISON: None FINDINGS: Bones: No vertebral body height loss to suggest acute fracture. Mild retrolisthesis of L3 on L4 and L2 on L3. Degenerative changes of the spine. Osteopenia. Soft tissues: No acute finding. Other: Nonspecific partially visualized bowel gas pattern. IMPRESSION: No acute abnormality.
--- NOTE | 2020-04-21 16:07 | Diagnostic Imaging Report ---
EXAM: CT Cervical Spine Without Intravenous Contrast CLINICAL HISTORY: AMS TECHNIQUE: Axial computed tomography images of the cervical spine without intravenous contrast. CTDI is 20.20 mGy and DLP is 596.2 mGy-cm. One or more of the following dose reduction techniques were used: automated exposure control, adjustment of the mA and/or kV according to patient size, use of iterative reconstruction technique. COMPARISON: None FINDINGS: Bones: Straightening of the normal cervical lordosis. No acute fracture or bony lesion. Disc spaces: No subluxation. Degenerative changes of the spine. Soft tissues: Normal. Other: Mucosal thickening partially visualized in the maxillary sinuses. Atherosclerotic changes of the vasculature. IMPRESSION: No acute traumatic abnormality.
--- NOTE | 2020-04-21 16:09 | Diagnostic Imaging Report ---
EXAM: CT Head Without Intravenous Contrast CLINICAL HISTORY: AMS TECHNIQUE: Axial computed tomography images of the head/brain without intravenous contrast. CTDI is 53.4 mGy and DLP is 1072.2 mGy-cm. One or more of the following dose reduction techniques were used: automated exposure control, adjustment of the mA and/or kV according to patient size, use of iterative reconstruction technique. COMPARISON: CT head on 01/05/2020 FINDINGS: Brain: No acute infarct or hemorrhage identified. No extra-axial fluid collection. No mass effect or midline shift. Stable areas of hypoattenuation in the supratentorial white matter likely represent chronic small vessel ischemic changes. Stable calcifications in the basal ganglia. Ventricles and sulci: Prominence of the ventricles and sulci is likely secondary to cerebral volume loss. Bones: Normal. No bony lesion or acute fracture. Subcutaneous tissues: Normal. Sinuses: Normal. No air-fluid levels or mucosal thickening. Mastoid air cells: Normal. Orbits: Grossly unremarkable. Other: Atherosclerotic calcifications in the intracranial vasculature. IMPRESSION: 1. No acute intracranial abnormality. 2. Stable mild chronic small vessel ischemic changes and cerebral volume loss.
--- NOTE | 2020-04-21 17:03 | Internal Med Progress Note ---
Subjective Date of Service: Apr 21, 2020 Physician Name Syed Martinez Attending Physician Sabino Steve MD Current Medications Medications (Trade) Dose Ordered Sig/Lc Route PRN Reason Start Time Stop Time Status Last Admin Dose Admin Dextrose/ Electrolytes 1,000 ml @ 75 mls/hr [id number] IV 04/20/20 02:00 05/20/20 01:59 04/21/20 05:25 Folic Acid (Folate) 1 mg DAILY ORAL 04/20/20 09:00 05/20/20 08:59 04/21/20 08:39 Iohexol (Omnipaque 350 100ml) 100 ml NOW PRN INJ Radiology Procedure 04/19/20 20:45 04/21/20 20:44 Lorazepam (Ativan 2mg/ml 1ml) 0.5 mg Q4H PRN IV For Anxiety 04/20/20 00:30 04/27/20 00:29 04/21/20 16:19 Ondansetron HCl (Zofran) 4 mg Q4H PRN IVP Nausea & Vomiting 04/20/20 00:30 05/20/20 00:29 Pantoprazole (Protonix) 40 mg DAILY ORAL 04/20/20 09:00 05/20/20 08:59 04/21/20 08:38 Polyethylene Glycol (Miralax) 17 gm QHS ORAL 04/20/20 00:45 05/20/20 00:44 04/20/20 21:13 Thiamine HCl (Vitamin B1) 100 mg DAILY ORAL 04/20/20 09:00 05/20/20 08:59 04/21/20 08:39 Allergies: Coded Allergies: No Known Allergies (Unverified , 04/28/14) ROS Limited/Unobtainable: No Constitutional: Reports: no symptoms HEENT: Reports: no symptoms Cardiovascular: Reports: no symptoms Respiratory: Reports: no symptoms Gastrointestinal/Abdominal: Reports: no symptoms Genitourinary: Reports: no symptoms Neurologic/Psychiatric: Reports: no symptoms Subjective 64 YO M admitted with shortness of breath; R/O COVID 19. Now scapula and rib fractures. Objective Last Vital Signs Date Time Temp Pulse Resp B/P (MAP) Pulse Ox O2 Delivery O2 Flow Rate FiO2 04/21/20 16:19 76 19 138/70 95 04/21/20 12:00 98.5 04/21/20 09:00 Room Air General Appearance: WD/WN, no apparent distress, alert EENT: PERRL/EOMI, normal ENT inspection Neck: non-tender, normal alignment, supple, normal inspection Cardiovascular: normal peripheral pulses, normal rate, regular rhythm, no gallop/murmur, no JVD Respiratory/Chest: chest wall non-tender, lungs clear, normal breath sounds, no respiratory distress, no accessory muscle use Abdomen: normal bowel sounds, non tender, soft, no organomegaly, no mass Extremities: normal range of motion, non-tender Neurologic: billing assistant II-XII grossly normal, no motor/sensory deficits Skin: normal pigmentation, warm/dry Laboratory Tests Test 04/21/20 05:45 White Blood Count 4.5 K/UL (4.8-10.8) L Red Blood Count 3.40 M/UL (4.70-6.10) L Hemoglobin 12.0 G/DL (14.2-18.0) L Hematocrit 34.8 % (42.0-52.0) L Mean Corpuscular Volume 102 FL (80-99) H Mean Corpuscular Hemoglobin 35.1 PG (27.0-31.0) H Mean Corpuscular Hemoglobin Concent 34.4 G/DL (32.0-36.0) Red Cell Distribution Width 12.8 % (11.6-14.8) Platelet Count 205 K/UL (150-450) Mean Platelet Volume 8.0 FL (6.5-10.1) Neutrophils (%) (Auto) 35.3 % (45.0-75.0) L Lymphocytes (%) (Auto) 46.1 % (20.0-45.0) H Monocytes (%) (Auto) 15.2 % (1.0-10.0) H Eosinophils (%) (Auto) 1.0 % (0.0-3.0) Basophils (%) (Auto) 2.4 % (0.0-2.0) H Sodium Level 140 MMOL/L (136-145) Potassium Level 3.7 MMOL/L (3.5-5.1) Chloride Level 104 MMOL/L (98-107) Carbon Dioxide Level 28 MMOL/L (21-32) Anion Gap 8 mmol/L (5-15) Blood Urea Nitrogen 7 mg/dL (7-18) Creatinine 0.7 MG/DL (0.55-1.30) Estimat Glomerular Filtration Rate > 60 mL/min (>60) Glucose Level 91 MG/DL (74-106) Calcium Level 8.9 MG/DL (8.5-10.1) Phosphorus Level 3.9 MG/DL (2.5-4.9) Magnesium Level 1.8 MG/DL (1.8-2.4) Total Bilirubin 1.1 MG/DL (0.2-1.0) H Direct Bilirubin 0.3 MG/DL (0.0-0.3) Aspartate Amino Transf (AST/SGOT) 44 U/L (15-37) H Alanine Aminotransferase (ALT/SGPT) 54 U/L (12-78) Alkaline Phosphatase 51 U/L (46-116) Total Protein 6.8 G/DL (6.4-8.2) Albumin 3.3 G/DL (3.4-5.0) L Globulin 3.5 g/dL Albumin/Globulin Ratio 0.9 (1.0-2.7) L Thyroid Stimulating Hormone (TSH) 16.109 uiU/mL (0.358-3.740) Microbiology Date/Time Source Procedure Growth Status 04/19/20 23:40 Rectum - Final NO CARBAPENEM-RESISTANT ENTEROBACTERI... Complete 04/19/20 23:40 Rectum VRE Culture - Final NO VANCOMYCIN RESISTANT ENTEROCOCCUS ... Complete 04/19/20 18:09 Blood Blood Culture - Preliminary NO GROWTH AFTER 24 HOURS Resulted 04/19/20 18:06 Blood Blood Culture - Preliminary NO GROWTH AFTER 24 HOURS Resulted Intake and Output 04/20/20 04/21/20 19:00 07:00 Intake Total 140 ml 750 ml Output Total 1200 ml Balance -1060 ml 750 ml Intake Oral 140 ml IV Total 750 ml Output Urine Total 1200 ml # Voids 3 2 Assessment/Plan Problem List: (1) Right scapula fracture Assessment & Plan: Surgery=Dr Moreno (2) Rib fracture (3) Shortness of breath Assessment & Plan: R/O COVID 19 (4) Acute alcoholic intoxication (5) Alcohol abuse (6) Pancreatitis (7) Contusion of leg, right Syed Martinez MD Apr 21, 2020 17:03
--- NOTE | 2020-04-21 18:55 | NUR ---
NURSE HAND-OFF: Important Events on Shift: CT done Patient Status: stable Diet: regular Pending Orders: n/a Pending Results/Labs:n/a Pending MD notification:n/a Latest Vital Signs: Temperature 97.8 , Pulse 70 , B/P 131 /62 , Respiratory Rate 19 , O2 SAT 96 , Room Air, O2 Flow Rate . Vital Sign Comment: stable Latest Leal Fall Score: 80 Fall Risk: High Risk Safety Measures: Call light Within Reach, Bed Alarm Zone 1, Side Rails Side Rails x2, Bed position Low and Locked. Fall Precautions: Yellow Socks Report given to Yun.
--- NOTE | 2020-04-21 19:43 | NUR ---
NURSE NOTES: received report from elio lares. patient on bed, awake and verbally responsive. on room air. pui covid 19. iv access on the left hand, running ivf as ordered. uses urinal. reiterated to call and ask for assistance to prevent fall or injury. bed locked and in lowest position. bed alarm on. call light and light button within easy reach. will continue plan of care.
[2020-04-21 20:00] VITALS: BP 131/90
[2020-04-21] MEDS: Miralax 17gm pkt ORAL SCH (20:48)
--- NOTE | 2020-04-21 21:00 | NUR ---
NURSE NOTES: iv line is out. reinserted a new iv line on the right forearm. patent and intact. running ivf as ordered.
[2020-04-22] VITALS: BP 135/86
[2020-04-22 04:00] VITALS: BP 135/79
--- NOTE | 2020-04-22 05:00 | NUR ---
NURSE NOTES: patient took out iv line on the right forearm. with visible blood mixed with urine on the sheets. patient refused to get changed.attempted tp convince patient x2. per patient" i want to sleep. i dont want to get change right now. do it on the next shift at 8 am." new iv line on the right forearm 22g, running ivf as ordered wrapped with kerlix. charge nurse made aware.
[2020-04-22 06:22] LABS: BASOPHILS % (AUTO) 2.2 % (0.0-2.0); EOSINOPHILS % (AUTO) 1.1 % (0.0-3.0); HEMATOCRIT 38.7 % (42.0-52.0); HEMOGLOBIN 12.6 G/DL (14.2-18.0); LYMPHOCYTES % (AUTO) 47.9 % (20.0-45.0); MEAN CORPUSCULAR VOLUME 104 FL (80-99); MONOCYTES % (AUTO) 12.4 % (1.0-10.0); NEUTROPHILS % (AUTO) 36.5 % (45.0-75.0); PLATELET COUNT 231 K/UL (150-450); RED BLOOD COUNT 3.71 M/UL (4.70-6.10); RED CELL DISTRIBUTION WIDTH 12.6 % (11.6-14.8); WHITE BLOOD COUNT 5.1 K/UL (4.8-10.8)
--- NOTE | 2020-04-22 06:28 | NUR ---
NURSE HAND-OFF: Important Events on Shift: refused to get changed. he wants to sleep and prefers to get changed on the next shift at 8 pm. Patient Status: stable Diet:regular Pending Orders: Pending Results/Labs: Pending MD notification:paged dr. junior for the + mrsa nares Latest Vital Signs: Temperature 98.1 , Pulse 71 , B/P 135 /79 , Respiratory Rate 20 , O2 SAT 97 , Room Air, O2 Flow Rate . Vital Sign Comment: Latest Leal Fall Score: 80 Fall Risk: High Risk Safety Measures: Call light Within Reach, Bed Alarm Zone 1, Side Rails Side Rails x2, Bed position Low and Locked. Fall Precautions: Yellow Socks Yellow Gown
[2020-04-22 06:50] LABS: ALANINE AMINOTRANSFERASE 51 U/L (12-78); ALBUMIN 3.4 G/DL (3.4-5.0); ALBUMIN/GLOBULIN RATIO 0.9 (1.0-2.7); ALKALINE PHOSPHATASE 49 U/L (46-116); ANION GAP 8 mmol/L (5-15); ASPARTATE AMINO TRANSFERASE 45 U/L (15-37); BLOOD UREA NITROGEN 8 mg/dL (7-18); CARBON DIOXIDE 27 MMOL/L (21-32); CHLORIDE 103 MMOL/L (98-107); CREATININE 0.8 MG/DL (0.55-1.30); SODIUM 138 MMOL/L (136-145)
--- NOTE | 2020-04-22 07:17 | NUR ---
NURSE NOTES: received order for pain medication from dr. junior. order noted and carried out.
--- NOTE | 2020-04-22 07:24 | NUR ---
hand off given to elio swanson
[2020-04-22] MEDS ORDERED: traMADol 50mg tab ORAL PRN (07:30)
--- NOTE | 2020-04-22 07:30 | NUR ---
NURSE NOTES: RECEIVED PATIENT SOAKED WET IN BED. PATIENT IS ABLE TO VERBALIZE NEEDS. PATIENT DOES NOT WANT TO BE CHANGED @ THIS TIME. EXPLAINED THE IMPOTANCE OF CLEANLINESS. NO ACUTE CARDIO-RESP DISTRESS NOTED. PIV PATENT AND INTACT. KEPT BED IN THE LOWEST POSITION. SIDERAILS ARE UPX3. BED BRAKES ARE ENGAGED AND LOCKED @ ALL TIMES. CALL LIGHT IS WITHIN EASY REACH. WILL CONT TO MONITOR.
[2020-04-22 08:00] VITALS: BP 122/74
--- NOTE | 2020-04-22 08:30 | NUR ---
NURSE NOTES: ABLE TO PROVIDE BATH TO PATIENT. PATIENT IS ABLE TO FOLLOW COMMANDS. CONSUMED 100% BREAKFAST. NO N/V NOTED. WILL CONT TO MONITOR.
[2020-04-22] MEDS: Thiamine 100mg tab ORAL SCH (08:34)
[2020-04-22] MEDS: D5 1/2NS w/KCl 20mEq 1,000 ML IV SCH ×2 (08:35→20:40)
[2020-04-22] MEDS: LORazepam Inj 2mg/ml 1ml IV PRN ×3 (08:58→21:16)
--- NOTE | 2020-04-22 09:20 | NUR ---
PT EVALUATION NOTE Patient seen for initial evaluation and treatment initiated. Patient presents with decreased strength and balance which impairs patient's ability to perform mobility skills safely. Patient able to come to sitting at the EOB with SBA and able to sit at the EOB without external support. Patient c/o increasing dizziness in sitting and requested to return to bed. OOB activities deferred due to dizziness and patient request. Patient will benefit from skilled inpatient PT intervention to increase strength and postural stability for improved level of functional mobility and safety. Recommend discharge to SNF for continued rehab once medically cleared by MD. Addendum: 04/22/20 at 1049 by SHABNAM JIMENEZ PT Amended: Links added.
[2020-04-22 12:00] VITALS: BP 134/78
--- NOTE | 2020-04-22 12:00 | NUR ---
INSURANCE FAXED CLINICALS TO [facility] [place] FAX [phone] TELE [phone]
--- NOTE | 2020-04-22 12:26 | Surgery Progress Note ---
Surgery Progress Note Subjective Additional Comments CT reviewed no acute injury comfortable Objective Last 24 Hour Vital Signs Date Time Temp Pulse Resp B/P (MAP) Pulse Ox O2 Delivery O2 Flow Rate FiO2 04/22/20 12:00 97.9 69 18 134/78 (96) 97 04/22/20 09:28 73 18 122/74 98 04/22/20 09:00 Room Air 04/22/20 08:58 73 18 122/74 98 04/22/20 08:00 98.3 73 18 122/74 (90) 98 04/22/20 04:00 98.1 71 20 135/79 (97) 97 04/22/20 00:00 98.4 80 20 135/86 (102) 98 04/21/20 21:47 83 20 132/87 97 04/21/20 21:17 80 20 129/81 98 04/21/20 21:00 Room Air 04/21/20 20:00 97.9 76 20 131/90 (104) 97 04/21/20 16:49 70 19 131/62 96 04/21/20 16:19 76 19 138/70 95 04/21/20 16:00 97.8 71 20 154/93 (113) 96 I&O Intake and Output 04/21/20 04/22/20 19:00 07:00 Intake Total 960 ml 210 ml Output Total 400 ml Balance 560 ml 210 ml Intake Oral 960 ml 210 ml Output Urine Total 400 ml # Voids 3 Cardiovascular: RSR Respiratory: clear Abdomen: soft, non-tender, present bowel sounds Extremities: no edema, no tenderness, no cyanosis Laboratory Tests Test 04/22/20 04:50 White Blood Count 5.1 K/UL (4.8-10.8) Red Blood Count 3.71 M/UL (4.70-6.10) L Hemoglobin 12.6 G/DL (14.2-18.0) L Hematocrit 38.7 % (42.0-52.0) L Mean Corpuscular Volume 104 FL (80-99) H Mean Corpuscular Hemoglobin 34.0 PG (27.0-31.0) H Mean Corpuscular Hemoglobin Concent 32.6 G/DL (32.0-36.0) Red Cell Distribution Width 12.6 % (11.6-14.8) Platelet Count 231 K/UL (150-450) Mean Platelet Volume 7.6 FL (6.5-10.1) Neutrophils (%) (Auto) 36.5 % (45.0-75.0) L Lymphocytes (%) (Auto) 47.9 % (20.0-45.0) H Monocytes (%) (Auto) 12.4 % (1.0-10.0) H Eosinophils (%) (Auto) 1.1 % (0.0-3.0) Basophils (%) (Auto) 2.2 % (0.0-2.0) H Sodium Level 138 MMOL/L (136-145) Potassium Level 4.0 MMOL/L (3.5-5.1) Chloride Level 103 MMOL/L (98-107) Carbon Dioxide Level 27 MMOL/L (21-32) Anion Gap 8 mmol/L (5-15) Blood Urea Nitrogen 8 mg/dL (7-18) Creatinine 0.8 MG/DL (0.55-1.30) Estimat Glomerular Filtration Rate > 60 mL/min (>60) Glucose Level 93 MG/DL (74-106) Calcium Level 9.0 MG/DL (8.5-10.1) Total Bilirubin 1.0 MG/DL (0.2-1.0) Aspartate Amino Transf (AST/SGOT) 45 U/L (15-37) H Alanine Aminotransferase (ALT/SGPT) 51 U/L (12-78) Alkaline Phosphatase 49 U/L (46-116) Total Protein 7.1 G/DL (6.4-8.2) Albumin 3.4 G/DL (3.4-5.0) Globulin 3.7 g/dL Albumin/Globulin Ratio 0.9 (1.0-2.7) L Plan Problems: (1) Scapula fracture Assessment & Plan: EtOH use recent fall CT with fracture. Patient does not recall trauma or injury identifiable. Does not have history of known fracture in the past of It. On examination fairly benign at this time. Plan for para today. No acute surgical invention indicated recommend at this time. Scaphoid fracture can be monitored for now. Outpatient follow-up with Ortho if desired. Okay for diet. Follow with recommendations thank you let me participate patient's care pulmonary arteries: No definite PE visualized. Aorta: No aortic dissection. Lungs: No focal consolidation. Pleural space: Unremarkable. No significant effusion. No pneumothorax. Heart: Unremarkable. Bones/joints: Right inferior scapular fracture, please correlate clinically for acuity. Subacute/chronic rib fractures. Soft tissues: Unremarkable. Lymph nodes: Unremarkable. IMPRESSION: 1. Limited due to motion. 2. No definite PE visualized. 3. No focal consolidation. 4. Right inferior scapular fracture, please correlate clinically for acuity. (2) Acute alcoholic intoxication (3) Alcohol intoxication (4) Alcohol abuse (5) Alcohol abuse (6) Pancreatitis (7) Sepsis (8) Abrasion (9) Chronic pain (10) Drug-seeking behavior (11) Chronic leg pain (12) Contusion of leg, right (13) Contusion of lower leg, right (14) Contusion of mid back (15) Injury of lower extremity (16) Injury of lower extremity (17) Injury of lower extremity (18) Injury of lower extremity (19) Encounter for generalized patient complaints (20) Refusal of care by patient (21) Status post fracture of right tibia Abiodun Moreno Apr 22, 2020 12:26
--- NOTE | 2020-04-22 13:40 | Internal Med Progress Note ---
Subjective Date of Service: Apr 22, 2020 Physician Name Syed Martinez Attending Physician Sabino Steve MD Current Medications Medications (Trade) Dose Ordered Sig/Lc Route PRN Reason Start Time Stop Time Status Last Admin Dose Admin Dextrose/ Electrolytes 1,000 ml @ 75 mls/hr [id number] IV 04/20/20 02:00 05/20/20 01:59 04/22/20 08:35 Folic Acid (Folate) 1 mg DAILY ORAL 04/20/20 09:00 05/20/20 08:59 04/22/20 08:34 Levothyroxine Sodium (Synthroid) 100 mcg DAILY@0630 ORAL 04/22/20 06:30 05/22/20 06:29 04/22/20 05:50 Lorazepam (Ativan 2mg/ml 1ml) 0.5 mg Q4H PRN IV For Anxiety 04/20/20 00:30 04/27/20 00:29 04/22/20 08:58 Ondansetron HCl (Zofran) 4 mg Q4H PRN IVP Nausea & Vomiting 04/20/20 00:30 05/20/20 00:29 Pantoprazole (Protonix) 40 mg DAILY ORAL 04/20/20 09:00 05/20/20 08:59 04/22/20 08:34 Polyethylene Glycol (Miralax) 17 gm QHS ORAL 04/20/20 00:45 05/20/20 00:44 04/21/20 20:48 Thiamine HCl (Vitamin B1) 100 mg DAILY ORAL 04/20/20 09:00 05/20/20 08:59 04/22/20 08:34 Tramadol HCl (Ultram) 50 mg Q6H PRN ORAL For Pain 04/22/20 07:30 04/29/20 07:29 Allergies: Coded Allergies: No Known Allergies (Unverified , 04/28/14) ROS Limited/Unobtainable: No Constitutional: Reports: no symptoms HEENT: Reports: no symptoms Cardiovascular: Reports: no symptoms Respiratory: Reports: no symptoms Gastrointestinal/Abdominal: Reports: no symptoms Genitourinary: Reports: no symptoms Neurologic/Psychiatric: Reports: no symptoms Subjective 64 YO M admitted with shortness of breath; R/O COVID 19. Now scapula and rib fractures. Objective Last Vital Signs Date Time Temp Pulse Resp B/P (MAP) Pulse Ox O2 Delivery O2 Flow Rate FiO2 04/22/20 12:00 97.9 69 18 134/78 (96) 97 04/22/20 09:00 Room Air Laboratory Tests Test 04/22/20 04:50 White Blood Count 5.1 K/UL (4.8-10.8) Red Blood Count 3.71 M/UL (4.70-6.10) L Hemoglobin 12.6 G/DL (14.2-18.0) L Hematocrit 38.7 % (42.0-52.0) L Mean Corpuscular Volume 104 FL (80-99) H Mean Corpuscular Hemoglobin 34.0 PG (27.0-31.0) H Mean Corpuscular Hemoglobin Concent 32.6 G/DL (32.0-36.0) Red Cell Distribution Width 12.6 % (11.6-14.8) Platelet Count 231 K/UL (150-450) Mean Platelet Volume 7.6 FL (6.5-10.1) Neutrophils (%) (Auto) 36.5 % (45.0-75.0) L Lymphocytes (%) (Auto) 47.9 % (20.0-45.0) H Monocytes (%) (Auto) 12.4 % (1.0-10.0) H Eosinophils (%) (Auto) 1.1 % (0.0-3.0) Basophils (%) (Auto) 2.2 % (0.0-2.0) H Sodium Level 138 MMOL/L (136-145) Potassium Level 4.0 MMOL/L (3.5-5.1) Chloride Level 103 MMOL/L (98-107) Carbon Dioxide Level 27 MMOL/L (21-32) Anion Gap 8 mmol/L (5-15) Blood Urea Nitrogen 8 mg/dL (7-18) Creatinine 0.8 MG/DL (0.55-1.30) Estimat Glomerular Filtration Rate > 60 mL/min (>60) Glucose Level 93 MG/DL (74-106) Calcium Level 9.0 MG/DL (8.5-10.1) Total Bilirubin 1.0 MG/DL (0.2-1.0) Aspartate Amino Transf (AST/SGOT) 45 U/L (15-37) H Alanine Aminotransferase (ALT/SGPT) 51 U/L (12-78) Alkaline Phosphatase 49 U/L (46-116) Total Protein 7.1 G/DL (6.4-8.2) Albumin 3.4 G/DL (3.4-5.0) Globulin 3.7 g/dL Albumin/Globulin Ratio 0.9 (1.0-2.7) L Microbiology Date/Time Source Procedure Growth Status 04/19/20 23:40 Rectum - Final NO CARBAPENEM-RESISTANT ENTEROBACTERI... Complete 04/19/20 23:40 Rectum VRE Culture - Final NO VANCOMYCIN RESISTANT ENTEROCOCCUS ... Complete 04/19/20 23:40 Nasal Nares MRSA Culture - Final Staphylococcus Aureus - Mrsa Complete 04/19/20 21:10 Nasopharynx Coronavirus COVID-19 PCR (JAYLIN) - Final Complete 04/19/20 18:09 Blood Blood Culture - Preliminary NO GROWTH AFTER 48 HOURS Resulted 04/19/20 18:06 Blood Blood Culture - Preliminary NO GROWTH AFTER 48 HOURS Resulted Intake and Output 04/21/20 04/22/20 19:00 07:00 Intake Total 960 ml 210 ml Output Total 400 ml Balance 560 ml 210 ml Intake Oral 960 ml 210 ml Output Urine Total 400 ml # Voids 3 Objective General Appearance: WD/WN, no apparent distress, alert EENT: PERRL/EOMI, normal ENT inspection Neck: non-tender, normal alignment, supple, normal inspection Cardiovascular: normal peripheral pulses, normal rate, regular rhythm, no gallop/murmur, no JVD Respiratory/Chest: chest wall non-tender, lungs clear, normal breath sounds, no respiratory distress, no accessory muscle use Abdomen: normal bowel sounds, non tender, soft, no organomegaly, no mass Extremities: normal range of motion, non-tender Neurologic: grip wrapper II-XII grossly normal, no motor/sensory deficits Skin: normal pigmentation, warm/dry Assessment/Plan Problem List: (1) Right scapula fracture Assessment & Plan: Surgery=Dr Moreno (2) Rib fracture (3) Shortness of breath Assessment & Plan: R/O COVID 19 (4) Acute alcoholic intoxication (5) Alcohol abuse (6) Pancreatitis (7) Contusion of leg, right Syed Martinez MD Apr 22, 2020 13:40
[2020-04-22 15:58] VITALS: BP 138/68
--- NOTE | 2020-04-22 19:42 | NUR ---
NURSE HAND-OFF: Important Events on Shift:[fall risk; monitor for withdrawal symptoms] Patient Status: [stable] Diet: [reg] Pending Orders: [labs] Pending Results/Labs:[am] Pending MD notification:[] Latest Vital Signs: Temperature 98.5 , Pulse 71 , B/P 138 /68 , Respiratory Rate 18 , O2 SAT 97 , Room Air, O2 Flow Rate . Vital Sign Comment: [] Latest Leal Fall Score: 70 Fall Risk: High Risk Safety Measures: Call light Within Reach, Bed Alarm Zone 2, Side Rails Side Rails x3, Bed position Low and Locked. Fall Precautions: Yellow Socks Yellow Gown Report given to [diane].
[2020-04-22 20:00] VITALS: BP 134/78
--- NOTE | 2020-04-22 20:03 | NUR ---
NURSES NOTE: Received report from outgoing RN. Rounds completed. Pt in bed, A/OX4, denies pain currently. No outward s/s of distress noted. Breathing pattern is even and unlabored on RA. IV in place, infusing IVF without incident. No redness or swelling noted at IV site. Monitoring for ETOH withdrawls. All due medications will be administered. Pt will continue to be monitored.
[2020-04-22] MEDS: Miralax 17gm pkt ORAL SCH (20:40)
--- NOTE | 2020-04-22 23:29 | History and Physical Report ---
DATE OF ADMISSION: 04/19/2020 CHIEF COMPLAINT: Shortness of breath and unsteady gait. HISTORY OF PRESENT ILLNESS: This 64-year-old gentleman with past medical history of alcohol abuse, who presented to the emergency department complaining about shortness of breath. He stated began today on the day of admission due to alcohol withdrawal. The patient's last drink was last night and the patient stated that he had a fall and hit his head last night. Denies any loss of consciousness, some chest discomfort. Denies any cough. Denies any abdominal pain, nausea, vomiting, or diarrhea. EMS was called in and the patient was brought into the emergency department. Shortly after initial evaluation in the emergency department, the patient was identified to have no PE, but right inferior scapula fracture and subsequently the patient was admitted to the hospital with unsteady gait. Alcoholism with alcohol withdrawal and shortness of breath. PAST MEDICAL HISTORY/PAST SURGICAL HISTORY: As above history of alcohol abuse. Denies any history of coronary disease or high blood pressure. Denies any diabetes. MEDICATIONS: At home significant folic acid and thiamine. ALLERGIES: No known drug allergies. SOCIAL HISTORY: The patient with history of alcohol abuse, intoxication. Denies any substance abuse. FAMILY HISTORY: Noncontributory. REVIEW OF SYSTEMS: Mostly as above. PHYSICAL EXAMINATION: VITAL SIGNS: On admission, temperature is 97.5, pulse of 60, respirations 16, and blood pressure 118/70. GENERAL: The patient awake, responsive, no acute distress. HEAD AND NECK: Pupils equal and reactive to light. Extraocular movements intact. Neck was supple. No JVD. LUNGS: Good air entry with no wheezing or rales. HEART: S1, S2. Regular rhythm. No gallops. ABDOMEN: Soft, nondistended and nontender. Positive bowel sounds. EXTREMITIES: No cyanosis, clubbing or edema. NEUROLOGIC: Cranial nerves II through XII grossly intact. The patient is moving all extremities. Gait is unsteady. GENITOURINARY: Refused and deferred. RECTAL: Refused and deferred. PSYCHIATRIC: Mood and affect is intact. LABORATORY AND DIAGNOSTIC DATA: Laboratory on admission from the emergency department, WBC of 3.6, hemoglobin 13, hematocrit 40, platelets is 254. The patient's sodium 138, potassium 4.4, chloride 101, bicarb 28, BUN 10, creatinine 0.7, calcium is 9.0, magnesium is 1.3, and lactic-dehydrogenase is 333 and albumin is 3.1. Lactic acid is 3.30, second one is 2.30 and third one is 1.30. Troponin 0.00. The patient had a chest x-ray, cardiomegaly with no acute process. CT scan of the chest, abdomen and pelvic limited due to motion. No definite DP visualization. No focal consolation. Right inferior scapula fracture identified. ASSESSMENT: 1. Alcoholism with alcohol withdrawal. 2. Unsteady gait. 3. Shortness of breath. 4. Dehydration. 5. Hypomagnesemia. PLAN: Admit the patient to monitored unit. We will follow up laboratory. Code status, Full Code. DVT prophylaxis, heparin subcutaneous. Consider CT of the head and neck in order to rule out any head trauma. Monitor as outpatient IV hydration monitor. Start the patient on follow up with cultures. However, we would consider to start antibiotic. At this time, we will monitor all cultures including COVID-19 PCR. Sabino Steve M.D. DR: Tigre JOB#: [id number] CC:
[2020-04-23] VITALS: BP 135/81
[2020-04-23 04:00] VITALS: BP 124/81
[2020-04-23 05:53] LABS: BASOPHILS % (AUTO) 1.7 % (0.0-2.0); EOSINOPHILS % (AUTO) 2.3 % (0.0-3.0); HEMATOCRIT 37.5 % (42.0-52.0); LYMPHOCYTES % (AUTO) 43.1 % (20.0-45.0); MEAN CORPUSCULAR VOLUME 104 FL (80-99); MONOCYTES % (AUTO) 11.9 % (1.0-10.0); PLATELET COUNT 226 K/UL (150-450); RED BLOOD COUNT 3.59 M/UL (4.70-6.10); RED CELL DISTRIBUTION WIDTH 12.2 % (11.6-14.8); WHITE BLOOD COUNT 5.3 K/UL (4.8-10.8)
[2020-04-23] MEDS: LORazepam Inj 2mg/ml 1ml IV PRN ×3 (05:55→20:07)
[2020-04-23 06:02] LABS: ANION GAP 9 mmol/L (5-15); BLOOD UREA NITROGEN 15 mg/dL (7-18); CALCIUM 8.6 MG/DL (8.5-10.1); CARBON DIOXIDE 25 MMOL/L (21-32); CHLORIDE 106 MMOL/L (98-107); CREATININE 0.8 MG/DL (0.55-1.30); POTASSIUM 3.9 MMOL/L (3.5-5.1); SODIUM 140 MMOL/L (136-145)
--- NOTE | 2020-04-23 07:56 | NUR ---
NURSE HAND-OFF: Important Events on Shift:[N/A] Patient Status: [STABLE] Diet: [REG] Pending Orders: [N/A] Pending Results/Labs:[AM LABS- endorsed to AM RN] Pending MD notification:[N/A] Latest Vital Signs: Temperature 98.6 , Pulse 63 , B/P 124 /81 , Respiratory Rate 18 , O2 SAT 97 , Room Air, O2 Flow Rate . Vital Sign Comment: [WNL] Latest Leal Fall Score: 70 Fall Risk: High Risk Safety Measures: Call light Within Reach, Bed Alarm Zone 2, Side Rails Side Rails x3, Bed position Low and Locked. Fall Precautions: Yellow Socks Yellow Gown Report given to [YINA Ivan].
--- NOTE | 2020-04-23 07:57 | NUR ---
NURSE NOTES: Patient lying in bed sleeping. No signs and symptoms of pain or distress at this time. IV dressing intact and dry. Bed lowest position and side rails up. Call light within reach. Will continue to monitor.
[2020-04-23 08:00] VITALS: BP 124/71
[2020-04-23] MEDS: Thiamine 100mg tab ORAL SCH (09:24)
[2020-04-23] MEDS: D5 1/2NS w/KCl 20mEq 1,000 ML IV SCH ×2 (09:26→20:06)
[2020-04-23 12:00] VITALS: BP 131/83
--- NOTE | 2020-04-23 13:52 | Surgery Progress Note ---
Surgery Progress Note Subjective Additional Comments afebrile, Hd stable no n/v comfortable resting without complaints Objective Last 24 Hour Vital Signs Date Time Temp Pulse Resp B/P (MAP) Pulse Ox O2 Delivery O2 Flow Rate FiO2 04/23/20 12:00 97.9 58 20 131/83 (99) 97 04/23/20 11:47 72 20 124/71 96 04/23/20 11:17 72 20 124/71 96 04/23/20 09:00 Room Air 04/23/20 08:00 97.7 72 20 124/71 (88) 96 04/23/20 06:25 63 18 124/81 97 04/23/20 05:55 63 18 124/81 97 04/23/20 04:00 98.6 63 18 124/81 (95) 97 04/23/20 00:00 98.7 67 20 135/81 (99) 97 04/22/20 21:46 69 16 134/78 97 04/22/20 21:16 69 16 134/78 97 04/22/20 21:00 Room Air 04/22/20 20:00 99.5 69 16 134/78 (96) 97 04/22/20 17:33 71 18 138/68 97 04/22/20 17:03 71 18 138/68 97 04/22/20 15:58 98.5 71 18 138/68 (91) 97 I&O Intake and Output 04/22/20 04/23/20 19:00 07:00 Intake Total 1080 ml 480 ml Output Total 600 ml 600 ml Balance 480 ml -120 ml Intake Oral 480 ml 480 ml IV Total 600 ml Output Urine Total 600 ml 600 ml # Voids 3 Cardiovascular: RSR Respiratory: clear Abdomen: soft, flat, non-tender Extremities: no edema, no tenderness, no cyanosis Laboratory Tests Test 04/23/20 05:20 White Blood Count 5.3 K/UL (4.8-10.8) Red Blood Count 3.59 M/UL (4.70-6.10) L Hemoglobin 12.0 G/DL (14.2-18.0) L Hematocrit 37.5 % (42.0-52.0) L Mean Corpuscular Volume 104 FL (80-99) H Mean Corpuscular Hemoglobin 33.5 PG (27.0-31.0) H Mean Corpuscular Hemoglobin Concent 32.1 G/DL (32.0-36.0) Red Cell Distribution Width 12.2 % (11.6-14.8) Platelet Count 226 K/UL (150-450) Mean Platelet Volume 7.9 FL (6.5-10.1) Neutrophils (%) (Auto) 41.0 % (45.0-75.0) L Lymphocytes (%) (Auto) 43.1 % (20.0-45.0) Monocytes (%) (Auto) 11.9 % (1.0-10.0) H Eosinophils (%) (Auto) 2.3 % (0.0-3.0) Basophils (%) (Auto) 1.7 % (0.0-2.0) Sodium Level 140 MMOL/L (136-145) Potassium Level 3.9 MMOL/L (3.5-5.1) Chloride Level 106 MMOL/L (98-107) Carbon Dioxide Level 25 MMOL/L (21-32) Anion Gap 9 mmol/L (5-15) Blood Urea Nitrogen 15 mg/dL (7-18) Creatinine 0.8 MG/DL (0.55-1.30) Estimat Glomerular Filtration Rate > 60 mL/min (>60) Glucose Level 108 MG/DL (74-106) H Calcium Level 8.6 MG/DL (8.5-10.1) Plan Problems: (1) Scapula fracture Assessment & Plan: EtOH use recent fall CT with fracture. Patient does not recall trauma or injury identifiable. Does not have history of known fracture in the past of It. On examination fairly benign at this time. Plan for para today. No acute surgical invention indicated recommend at this time. Scaphoid fracture can be monitored for now. Outpatient follow-up with Ortho if desired. Okay for diet. Follow with recommendations thank you let me participate patient's care pulmonary arteries: No definite PE visualized. Aorta: No aortic dissection. Lungs: No focal consolidation. Pleural space: Unremarkable. No significant effusion. No pneumothorax. Heart: Unremarkable. Bones/joints: Right inferior scapular fracture, please correlate clinically for acuity. Subacute/chronic rib fractures. Soft tissues: Unremarkable. Lymph nodes: Unremarkable. IMPRESSION: 1. Limited due to motion. 2. No definite PE visualized. 3. No focal consolidation. 4. Right inferior scapular fracture, please correlate clinically for acuity. (2) Acute alcoholic intoxication (3) Alcohol intoxication (4) Alcohol abuse (5) Alcohol abuse (6) Pancreatitis (7) Sepsis (8) Abrasion (9) Chronic pain (10) Drug-seeking behavior (11) Chronic leg pain (12) Contusion of leg, right (13) Contusion of lower leg, right (14) Contusion of mid back (15) Injury of lower extremity (16) Injury of lower extremity (17) Injury of lower extremity (18) Injury of lower extremity (19) Encounter for generalized patient complaints (20) Refusal of care by patient (21) Status post fracture of right tibia Abiodun Moreno Apr 23, 2020 13:52
--- NOTE | 2020-04-23 14:39 | NUR ---
CASE MANAGEMENT:REVIEW 04/23/20 SI: ALCOHOLISM W/WITHDRAWAL. DEHYDRATION 97.8 58 20 131/83 97% ON RA H/H-12.0/37.5 IS: SYNTHROID PO QD PROTONIX PO QD FOLATE PO QD THIAMINE PO QD IVF@75/HR : MED/SURG STATUS DCP: HOME...LIVES WITH HIS BROTHER IN [place] PLAN: CONTINUE PHYSICAL THERAPY ~ DIZZINESS WITH STANDING
--- NOTE | 2020-04-23 15:43 | NUR ---
INSURANCE FAXED CLINICAL/REVIEW TO [facility] FAX [phone] TELE [phone]
[2020-04-23 16:00] VITALS: BP 121/80
--- NOTE | 2020-04-23 19:08 | Internal Med Progress Note ---
Subjective Date of Service: Apr 23, 2020 Physician Name Syed Martinez Attending Physician Sabino Steve MD Current Medications Medications (Trade) Dose Ordered Sig/Lc Route PRN Reason Start Time Stop Time Status Last Admin Dose Admin Dextrose/ Electrolytes 1,000 ml @ 75 mls/hr [id number] IV 04/20/20 02:00 05/20/20 01:59 04/23/20 09:26 Folic Acid (Folate) 1 mg DAILY ORAL 04/20/20 09:00 05/20/20 08:59 04/23/20 09:24 Levothyroxine Sodium (Synthroid) 100 mcg DAILY@0630 ORAL 04/22/20 06:30 05/22/20 06:29 04/23/20 05:55 Lorazepam (Ativan 2mg/ml 1ml) 0.5 mg Q4H PRN IV For Anxiety 04/20/20 00:30 04/27/20 00:29 04/23/20 11:17 Ondansetron HCl (Zofran) 4 mg Q4H PRN IVP Nausea & Vomiting 04/20/20 00:30 05/20/20 00:29 Pantoprazole (Protonix) 40 mg DAILY ORAL 04/20/20 09:00 05/20/20 08:59 04/23/20 09:24 Polyethylene Glycol (Miralax) 17 gm QHS ORAL 04/20/20 00:45 05/20/20 00:44 04/22/20 20:40 Thiamine HCl (Vitamin B1) 100 mg DAILY ORAL 04/20/20 09:00 05/20/20 08:59 04/23/20 09:24 Tramadol HCl (Ultram) 50 mg Q6H PRN ORAL For Pain 04/22/20 07:30 04/29/20 07:29 Allergies: Coded Allergies: No Known Allergies (Unverified , 04/28/14) ROS Limited/Unobtainable: No Constitutional: Reports: no symptoms HEENT: Reports: no symptoms Cardiovascular: Reports: no symptoms Respiratory: Reports: no symptoms Gastrointestinal/Abdominal: Reports: no symptoms Genitourinary: Reports: no symptoms Neurologic/Psychiatric: Reports: no symptoms Subjective 64 YO M admitted with shortness of breath; R/O COVID 19. Now scapula and rib fractures. Cover for Int Med-Dr Power Objective Last Vital Signs Date Time Temp Pulse Resp B/P (MAP) Pulse Ox O2 Delivery O2 Flow Rate FiO2 04/23/20 16:00 98.0 65 20 121/80 (94) 96 04/23/20 09:00 Room Air Laboratory Tests Test 04/23/20 05:20 White Blood Count 5.3 K/UL (4.8-10.8) Red Blood Count 3.59 M/UL (4.70-6.10) L Hemoglobin 12.0 G/DL (14.2-18.0) L Hematocrit 37.5 % (42.0-52.0) L Mean Corpuscular Volume 104 FL (80-99) H Mean Corpuscular Hemoglobin 33.5 PG (27.0-31.0) H Mean Corpuscular Hemoglobin Concent 32.1 G/DL (32.0-36.0) Red Cell Distribution Width 12.2 % (11.6-14.8) Platelet Count 226 K/UL (150-450) Mean Platelet Volume 7.9 FL (6.5-10.1) Neutrophils (%) (Auto) 41.0 % (45.0-75.0) L Lymphocytes (%) (Auto) 43.1 % (20.0-45.0) Monocytes (%) (Auto) 11.9 % (1.0-10.0) H Eosinophils (%) (Auto) 2.3 % (0.0-3.0) Basophils (%) (Auto) 1.7 % (0.0-2.0) Sodium Level 140 MMOL/L (136-145) Potassium Level 3.9 MMOL/L (3.5-5.1) Chloride Level 106 MMOL/L (98-107) Carbon Dioxide Level 25 MMOL/L (21-32) Anion Gap 9 mmol/L (5-15) Blood Urea Nitrogen 15 mg/dL (7-18) Creatinine 0.8 MG/DL (0.55-1.30) Estimat Glomerular Filtration Rate > 60 mL/min (>60) Glucose Level 108 MG/DL (74-106) H Calcium Level 8.6 MG/DL (8.5-10.1) Intake and Output 04/22/20 04/23/20 19:00 07:00 Intake Total 1080 ml 480 ml Output Total 600 ml 600 ml Balance 480 ml -120 ml Intake Oral 480 ml 480 ml IV Total 600 ml Output Urine Total 600 ml 600 ml # Voids 3 Objective General Appearance: WD/WN, no apparent distress, alert EENT: PERRL/EOMI, normal ENT inspection Neck: non-tender, normal alignment, supple, normal inspection Cardiovascular: normal peripheral pulses, normal rate, regular rhythm, no gallop/murmur, no JVD Respiratory/Chest: chest wall non-tender, lungs clear, normal breath sounds, no respiratory distress, no accessory muscle use Abdomen: normal bowel sounds, non tender, soft, no organomegaly, no mass Extremities: normal range of motion, non-tender 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
--- NOTE | 2020-04-23 19:10 | NUR ---
NURSE HAND-OFF: Important Events on Shift:N/A Patient Status: Stable Diet: Regular Pending Orders: N/A Pending Results/Labs:N/A Pending MD notification:N/A Latest Vital Signs: Temperature 98.0 , Pulse 65 , B/P 121 /80 , Respiratory Rate 20 , O2 SAT 96 , Room Air, O2 Flow Rate . Vital Sign Comment: Stable Latest Leal Fall Score: 70 Fall Risk: High Risk Safety Measures: Call light Within Reach, Bed Alarm Zone 1, Side Rails Side Rails x2, Bed position Low and Locked. Fall Precautions: Yellow Socks Yellow Gown Door Sign Patient Fall Education Report given to Cindy BRAN. Patient in stable condition.
--- NOTE | 2020-04-23 19:42 | NUR ---
NURSE NOTES: Received patient awake, alert, verbal, resting in bed, uses the urinal, comfortable.
[2020-04-23] MEDS: Miralax 17gm pkt ORAL SCH (20:06)
[2020-04-23 20:30] VITALS: BP 139/88
[2020-04-24 00:07] VITALS: BP 157/82
[2020-04-24 04:31] VITALS: BP 140/77
--- NOTE | 2020-04-24 07:08 | NUR ---
NURSE HAND-OFF: Important Events on Shift:[]stable Patient Status: [] Diet: [] Pending Orders: [] Pending Results/Labs:[] Pending MD notification:[] Latest Vital Signs: Temperature 97.5 , Pulse 58 , B/P 140 /77 , Respiratory Rate 18 , O2 SAT 98 , Room Air, O2 Flow Rate . Vital Sign Comment: [] Latest Leal Fall Score: 70 Fall Risk: High Risk Safety Measures: Call light Within Reach, Bed Alarm Zone 1, Side Rails Side Rails x2, Bed position Low and Locked. Fall Precautions: Yellow Socks Yellow Gown Door Sign Patient Fall Education Report given to [].
--- NOTE | 2020-04-24 07:10 | NUR ---
NURSE NOTES: Patient lying in bed awake. No complain of pain or distress at this time. IV dressing intact and dry. Bed lowest position and side rails up. Call light within reach. Will continue to monitor.
[2020-04-24 07:25] LABS: BASOPHILS % (AUTO) 2.4 % (0.0-2.0); EOSINOPHILS % (AUTO) 2.3 % (0.0-3.0); HEMATOCRIT 37.9 % (42.0-52.0); HEMOGLOBIN 12.2 G/DL (14.2-18.0); LYMPHOCYTES % (AUTO) 39.1 % (20.0-45.0); MEAN CORPUSCULAR VOLUME 106 FL (80-99); MONOCYTES % (AUTO) 10.8 % (1.0-10.0); NEUTROPHILS % (AUTO) 45.4 % (45.0-75.0); PLATELET COUNT 224 K/UL (150-450); RED BLOOD COUNT 3.58 M/UL (4.70-6.10); RED CELL DISTRIBUTION WIDTH 12.8 % (11.6-14.8); WHITE BLOOD COUNT 5.2 K/UL (4.8-10.8)
[2020-04-24 07:52] LABS: ANION GAP 7 mmol/L (5-15); BLOOD UREA NITROGEN 14 mg/dL (7-18); CALCIUM 8.8 MG/DL (8.5-10.1); CARBON DIOXIDE 27 MMOL/L (21-32); CHLORIDE 106 MMOL/L (98-107); CREATININE 0.7 MG/DL (0.55-1.30); SODIUM 140 MMOL/L (136-145)
[2020-04-24 08:00] VITALS: BP 154/97
[2020-04-24] MEDS: Thiamine 100mg tab ORAL SCH (08:58)
[2020-04-24] MEDS: LORazepam Inj 2mg/ml 1ml IV PRN ×2 (09:01→23:59)
[2020-04-24 12:00] VITALS: BP 133/83
--- NOTE | 2020-04-24 12:22 | NUR ---
RD ASSESSMENT & RECOMMENDATIONS SEE CARE ACTIVITY FOR COMPLETE ASSESSMENT DAILY ESTIMATED NEEDS: Needs based on FX/ 76.6kg 25-30 kcals/kg 5244-1808 total kcals 1-1.3 g protein/kg 77-99 g total protein 25-30 mL/kg 9033-5022 total fluid mLs NUTRITION DIAGNOSIS: Altered nutrition related lab values R/T ETOH abuse as evidenced by elev AST (94-> 45), CURRENT DIET:REGULAR PO DIET RECOMMENDATIONS: LOW NA ADDITIONAL RECOMMENDATIONS: * Standing wt for accurate CBW * Continue Folate and B1 * Add MVI * Monitor lytes, replete as needed * Monitor for continued good PO and tolerance
[2020-04-24] MEDS: D5 1/2NS w/KCl 20mEq 1,000 ML IV SCH ×2 (12:26→23:52)
--- NOTE | 2020-04-24 13:09 | NUR ---
CASE MANAGEMENT:REVIEW 04/24/20 SI: ALCOHOLISM W/WITHDRAWAL. DEHYDRATION 98.7 64 19 133/83 96% ON RA H/H-12.2/37.9 IS: SYNTHROID PO QD PROTONIX PO QD FOLATE PO QD THIAMINE PO QD IVF@75/HR IV ATIVAN Q4HRS PRN ANXIETY ULTRAM PO Q6HRS PRN : MED/SURG STATUS DCP: HOME...LIVES WITH HIS BROTHER IN [place] PLAN: CONTINUE PHYSICAL THERAPY ~ DIZZINESS WITH STANDING
--- NOTE | 2020-04-24 13:14 | NUR ---
DISCHARGE PLANNING PATIENT LIVES WITH HIS BROTHER IN [place]
--- NOTE | 2020-04-24 14:31 | Surgery Progress Note ---
Surgery Progress Note Subjective Symptoms: improved, pain absent, tolerating diet Additional Comments shannan cute events Objective Last 24 Hour Vital Signs Date Time Temp Pulse Resp B/P (MAP) Pulse Ox O2 Delivery O2 Flow Rate FiO2 04/24/20 12:00 98.7 64 19 133/83 (100) 96 04/24/20 09:31 67 20 154/97 97 04/24/20 09:01 67 20 154/97 97 04/24/20 09:00 Room Air 04/24/20 08:00 97.6 67 20 154/97 (116) 97 04/24/20 04:31 97.5 58 18 140/77 (98) 98 04/24/20 00:07 98.5 65 17 157/82 (107) 97 04/23/20 21:03 Room Air 04/23/20 20:39 61 17 139/88 96 04/23/20 20:30 97.4 61 17 139/88 (105) 96 04/23/20 20:07 65 20 121/80 96 04/23/20 16:00 98.0 65 20 121/80 (94) 96 I&O Intake and Output 04/23/20 04/24/20 19:00 07:00 Intake Total 720 ml 1225 ml Output Total 900 ml Balance -180 ml 1225 ml Intake Oral 720 ml IV Total 825 ml Other 400 ml Output Urine Total 900 ml # Voids 3 Cardiovascular: RSR Respiratory: clear Abdomen: soft, flat, non-tender, present bowel sounds Extremities: no edema, no tenderness, no cyanosis Laboratory Tests Test 04/24/20 06:07 White Blood Count 5.2 K/UL (4.8-10.8) Red Blood Count 3.58 M/UL (4.70-6.10) L Hemoglobin 12.2 G/DL (14.2-18.0) L Hematocrit 37.9 % (42.0-52.0) L Mean Corpuscular Volume 106 FL (80-99) H Mean Corpuscular Hemoglobin 34.0 PG (27.0-31.0) H Mean Corpuscular Hemoglobin Concent 32.1 G/DL (32.0-36.0) Red Cell Distribution Width 12.8 % (11.6-14.8) Platelet Count 224 K/UL (150-450) Mean Platelet Volume 8.1 FL (6.5-10.1) Neutrophils (%) (Auto) 45.4 % (45.0-75.0) Lymphocytes (%) (Auto) 39.1 % (20.0-45.0) Monocytes (%) (Auto) 10.8 % (1.0-10.0) H Eosinophils (%) (Auto) 2.3 % (0.0-3.0) Basophils (%) (Auto) 2.4 % (0.0-2.0) H Sodium Level 140 MMOL/L (136-145) Potassium Level 4.0 MMOL/L (3.5-5.1) Chloride Level 106 MMOL/L (98-107) Carbon Dioxide Level 27 MMOL/L (21-32) Anion Gap 7 mmol/L (5-15) Blood Urea Nitrogen 14 mg/dL (7-18) Creatinine 0.7 MG/DL (0.55-1.30) Estimat Glomerular Filtration Rate > 60 mL/min (>60) Glucose Level 88 MG/DL (74-106) Calcium Level 8.8 MG/DL (8.5-10.1) Plan Problems: (1) Scapula fracture Assessment & Plan: EtOH use recent fall CT with fracture. Patient does not recall trauma or injury identifiable. Does not have history of known fracture in the past of It. On examination fairly benign at this time. Plan for para today. No acute surgical invention indicated recommend at this time. Scaphoid fracture can be monitored for now. Outpatient follow-up with Ortho if desired. Okay for diet. Follow with recommendations thank you let me participate patient's care pulmonary arteries: No definite PE visualized. Aorta: No aortic dissection. Lungs: No focal consolidation. Pleural space: Unremarkable. No significant effusion. No pneumothorax. Heart: Unremarkable. Bones/joints: Right inferior scapular fracture, please correlate clinically for acuity. Subacute/chronic rib fractures. Soft tissues: Unremarkable. Lymph nodes: Unremarkable. IMPRESSION: 1. Limited due to motion. 2. No definite PE visualized. 3. No focal consolidation. 4. Right inferior scapular fracture, please correlate clinically for acuity. (2) Acute alcoholic intoxication (3) Alcohol intoxication (4) Alcohol abuse (5) Alcohol abuse (6) Pancreatitis (7) Sepsis (8) Abrasion (9) Chronic pain (10) Drug-seeking behavior (11) Chronic leg pain (12) Contusion of leg, right (13) Contusion of lower leg, right (14) Contusion of mid back (15) Injury of lower extremity (16) Injury of lower extremity (17) Injury of lower extremity (18) Injury of lower extremity (19) Encounter for generalized patient complaints (20) Refusal of care by patient (21) Status post fracture of right tibia Abiodun Moreno Apr 24, 2020 14:30
[2020-04-24 16:00] VITALS: BP 134/81
--- NOTE | 2020-04-24 16:09 | NUR ---
CEPHALOMETRIC TECHNICIAN NOTES PLACED A CALL TO [facility], LEFT A MESSAGE FOR DIANNA OLIVA. REQUESTED CONTRACTED SNF LIST FOR PT.
--- NOTE | 2020-04-24 16:27 | NUR ---
INSURANCE FAXED CLINICAL/REVIEW TO [facility] FAX [phone] TELE [phone]
--- NOTE | 2020-04-24 18:35 | Internal Med Progress Note ---
Subjective Date of Service: Apr 24, 2020 Physician Name Syed Martinez Attending Physician Sabino Steve MD Current Medications Medications (Trade) Dose Ordered Sig/Lc Route PRN Reason Start Time Stop Time Status Last Admin Dose Admin Dextrose/ Electrolytes 1,000 ml @ 75 mls/hr [id number] IV 04/20/20 02:00 05/20/20 01:59 04/24/20 12:26 Folic Acid (Folate) 1 mg DAILY ORAL 04/20/20 09:00 05/20/20 08:59 04/24/20 08:58 Levothyroxine Sodium (Synthroid) 100 mcg DAILY@0630 ORAL 04/22/20 06:30 05/22/20 06:29 04/24/20 06:15 Lorazepam (Ativan 2mg/ml 1ml) 0.5 mg Q4H PRN IV For Anxiety 04/20/20 00:30 04/27/20 00:29 04/24/20 09:01 Ondansetron HCl (Zofran) 4 mg Q4H PRN IVP Nausea & Vomiting 04/20/20 00:30 05/20/20 00:29 Pantoprazole (Protonix) 40 mg DAILY ORAL 04/20/20 09:00 05/20/20 08:59 04/24/20 08:58 Polyethylene Glycol (Miralax) 17 gm QHS ORAL 04/20/20 00:45 05/20/20 00:44 04/23/20 20:06 Thiamine HCl (Vitamin B1) 100 mg DAILY ORAL 04/20/20 09:00 05/20/20 08:59 04/24/20 08:58 Tramadol HCl (Ultram) 50 mg Q6H PRN ORAL For Pain 04/22/20 07:30 04/29/20 07:29 04/24/20 12:27 Allergies: Coded Allergies: No Known Allergies (Unverified , 04/28/14) ROS Limited/Unobtainable: No Constitutional: Reports: no symptoms HEENT: Reports: no symptoms Cardiovascular: Reports: no symptoms Respiratory: Reports: no symptoms Gastrointestinal/Abdominal: Reports: abdominal pain Genitourinary: Reports: no symptoms Neurologic/Psychiatric: Reports: no symptoms Subjective 64 YO M admitted with shortness of breath; R/O COVID 19. Now scapula and rib fractures. Cover for Int Med-Dr Steve Objective Last Vital Signs Date Time Temp Pulse Resp B/P (MAP) Pulse Ox O2 Delivery O2 Flow Rate FiO2 04/24/20 16:00 97.8 74 18 134/81 (98) 97 04/24/20 09:00 Room Air Laboratory Tests Test 04/24/20 06:07 White Blood Count 5.2 K/UL (4.8-10.8) Red Blood Count 3.58 M/UL (4.70-6.10) L Hemoglobin 12.2 G/DL (14.2-18.0) L Hematocrit 37.9 % (42.0-52.0) L Mean Corpuscular Volume 106 FL (80-99) H Mean Corpuscular Hemoglobin 34.0 PG (27.0-31.0) H Mean Corpuscular Hemoglobin Concent 32.1 G/DL (32.0-36.0) Red Cell Distribution Width 12.8 % (11.6-14.8) Platelet Count 224 K/UL (150-450) Mean Platelet Volume 8.1 FL (6.5-10.1) Neutrophils (%) (Auto) 45.4 % (45.0-75.0) Lymphocytes (%) (Auto) 39.1 % (20.0-45.0) Monocytes (%) (Auto) 10.8 % (1.0-10.0) H Eosinophils (%) (Auto) 2.3 % (0.0-3.0) Basophils (%) (Auto) 2.4 % (0.0-2.0) H Sodium Level 140 MMOL/L (136-145) Potassium Level 4.0 MMOL/L (3.5-5.1) Chloride Level 106 MMOL/L (98-107) Carbon Dioxide Level 27 MMOL/L (21-32) Anion Gap 7 mmol/L (5-15) Blood Urea Nitrogen 14 mg/dL (7-18) Creatinine 0.7 MG/DL (0.55-1.30) Estimat Glomerular Filtration Rate > 60 mL/min (>60) Glucose Level 88 MG/DL (74-106) Calcium Level 8.8 MG/DL (8.5-10.1) Intake and Output 04/23/20 04/24/20 19:00 07:00 Intake Total 720 ml 1225 ml Output Total 900 ml Balance -180 ml 1225 ml Intake Oral 720 ml IV Total 825 ml Other 400 ml Output Urine Total 900 ml # Voids 3 Objective General Appearance: WD/WN, no apparent distress, alert EENT: PERRL/EOMI, normal ENT inspection Neck: non-tender, normal alignment, supple, normal inspection Cardiovascular: normal peripheral pulses, normal rate, regular rhythm, no gallop/murmur, no JVD Respiratory/Chest: chest wall non-tender, lungs clear, normal breath sounds, no respiratory distress, no accessory muscle use Abdomen: normal bowel sounds, non tender, soft, no organomegaly, no mass Extremities: normal range of motion, non-tender 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
--- NOTE | 2020-04-24 19:00 | NUR ---
NURSE HAND-OFF: Important Events on Shift:N/A Patient Status: Stable Diet: Regular Pending Orders: N/A Pending Results/Labs:N/A Pending MD notification:N/A Latest Vital Signs: Temperature 97.8 , Pulse 74 , B/P 134 /81 , Respiratory Rate 18 , O2 SAT 97 , Room Air, O2 Flow Rate . Vital Sign Comment: Stable Latest Leal Fall Score: 70 Fall Risk: High Risk Safety Measures: Call light Within Reach, Bed Alarm Zone 1, Side Rails Side Rails x2, Bed position Low and Locked. Fall Precautions: Yellow Socks Yellow Gown Door Sign Patient Fall Education Report given to Cindy BRAN. Patient in stable condition.
--- NOTE | 2020-04-24 19:56 | NUR ---
NURSE NOTES: Received patient awake, alert, verbal, resting in bed, comfortable.
[2020-04-24 20:07] VITALS: BP 133/76
[2020-04-24] MEDS: Miralax 17gm pkt ORAL SCH (20:29)
[2020-04-25 00:09] VITALS: BP 147/82
[2020-04-25 04:00] VITALS: BP 135/82
--- NOTE | 2020-04-25 06:41 | NUR ---
NURSE HAND-OFF: Important Events on Shift:[]DCP with Home Health Patient Status: []Stable Diet: []Regular Pending Orders: [] Pending Results/Labs:[] Pending MD notification:[] Latest Vital Signs: Temperature 98.6 , Pulse 67 , B/P 135 /82 , Respiratory Rate 16 , O2 SAT 96 , Room Air, O2 Flow Rate . Vital Sign Comment: [] Latest Leal Fall Score: 70 Fall Risk: High Risk Safety Measures: Call light Within Reach, Bed Alarm Zone 1, Side Rails Side Rails x2, Bed position Low and Locked. Fall Precautions: Yellow Socks Yellow Gown Door Sign Patient Fall Education Report given to [].
[2020-04-25 07:22] LABS: BASOPHILS % (AUTO) 2.1 % (0.0-2.0); EOSINOPHILS % (AUTO) 2.1 % (0.0-3.0); HEMATOCRIT 36.2 % (42.0-52.0); HEMOGLOBIN 11.7 G/DL (14.2-18.0); LYMPHOCYTES % (AUTO) 36.1 % (20.0-45.0); MEAN CORPUSCULAR VOLUME 105 FL (80-99); MONOCYTES % (AUTO) 11.6 % (1.0-10.0); NEUTROPHILS % (AUTO) 48.1 % (45.0-75.0); PLATELET COUNT 198 K/UL (150-450); RED BLOOD COUNT 3.44 M/UL (4.70-6.10); RED CELL DISTRIBUTION WIDTH 12.6 % (11.6-14.8); WHITE BLOOD COUNT 5.4 K/UL (4.8-10.8)
[2020-04-25 07:39] LABS: ANION GAP 9 mmol/L (5-15); BLOOD UREA NITROGEN 13 mg/dL (7-18); CALCIUM 8.5 MG/DL (8.5-10.1); CARBON DIOXIDE 26 MMOL/L (21-32); CHLORIDE 105 MMOL/L (98-107); CREATININE 0.7 MG/DL (0.55-1.30); POTASSIUM 3.8 MMOL/L (3.5-5.1); SODIUM 140 MMOL/L (136-145)
--- NOTE | 2020-04-25 07:45 | NUR ---
NURSE NOTES: Patient awake and alert,respirations unlabored.IV fluids infusing as ordered. patient voided clear yellow urine. Patient ate breakfast.Bed alarm on,call light within reach.
[2020-04-25 08:00] VITALS: BP 132/73
[2020-04-25] MEDS: Thiamine 100mg tab ORAL SCH (08:20)
--- NOTE | 2020-04-25 08:39 | NUR ---
CASE MANAGEMENT:REVIEW 04/25/20 SI: ALCOHOLISM W/WITHDRAWAL. DEHYDRATION 98.6 67 16 135/82 96% ON RA H/H-11.7/36.2 IS: SYNTHROID PO QD PROTONIX PO QD FOLATE PO QD THIAMINE PO QD IVF@75/HR IV ATIVAN Q4HRS PRN ANXIETY ULTRAM PO Q6HRS PRN : MED/SURG STATUS DCP: HOME...LIVES WITH HIS BROTHER IN [place] PLAN: DISCHARGE PLANNING TO [facility]E DESTINATION
[2020-04-25] MEDS: LORazepam Inj 2mg/ml 1ml IV PRN ×3 (10:27→23:44)
--- NOTE | 2020-04-25 11:31 | Internal Med Progress Note ---
Subjective Date of Service: Apr 25, 2020 Physician Name Syed Martinez Attending Physician Sabino Steve MD Current Medications Medications (Trade) Dose Ordered Sig/Lc Route PRN Reason Start Time Stop Time Status Last Admin Dose Admin Dextrose/ Electrolytes 1,000 ml @ 75 mls/hr [id number] IV 04/20/20 02:00 05/20/20 01:59 04/24/20 23:52 Folic Acid (Folate) 1 mg DAILY ORAL 04/20/20 09:00 05/20/20 08:59 04/25/20 08:20 Levothyroxine Sodium (Synthroid) 100 mcg DAILY@0630 ORAL 04/22/20 06:30 05/22/20 06:29 04/25/20 05:43 Lorazepam (Ativan 2mg/ml 1ml) 0.5 mg Q4H PRN IV For Anxiety 04/20/20 00:30 04/27/20 00:29 04/25/20 10:27 Ondansetron HCl (Zofran) 4 mg Q4H PRN IVP Nausea & Vomiting 04/20/20 00:30 05/20/20 00:29 Pantoprazole (Protonix) 40 mg DAILY ORAL 04/20/20 09:00 05/20/20 08:59 04/25/20 08:20 Polyethylene Glycol (Miralax) 17 gm QHS ORAL 04/20/20 00:45 05/20/20 00:44 04/24/20 20:29 Thiamine HCl (Vitamin B1) 100 mg DAILY ORAL 04/20/20 09:00 05/20/20 08:59 04/25/20 08:20 Tramadol HCl (Ultram) 50 mg Q6H PRN ORAL For Pain 04/22/20 07:30 04/29/20 07:29 04/24/20 12:27 Allergies: Coded Allergies: No Known Allergies (Unverified , 04/28/14) ROS Limited/Unobtainable: No Constitutional: Reports: no symptoms HEENT: Reports: no symptoms Cardiovascular: Reports: no symptoms Respiratory: Reports: no symptoms Gastrointestinal/Abdominal: Reports: no symptoms Genitourinary: Reports: no symptoms Neurologic/Psychiatric: Reports: no symptoms Subjective 64 YO M admitted with shortness of breath; R/O COVID 19. Now scapula and rib fractures. Cover for Int Med-Dr Steve Objective Last Vital Signs Date Time Temp Pulse Resp B/P (MAP) Pulse Ox O2 Delivery O2 Flow Rate FiO2 04/25/20 11:01 58 18 130/76 96 04/25/20 10:05 Room Air 04/25/20 08:00 99.0 Laboratory Tests Test 04/25/20 06:05 White Blood Count 5.4 K/UL (4.8-10.8) Red Blood Count 3.44 M/UL (4.70-6.10) L Hemoglobin 11.7 G/DL (14.2-18.0) L Hematocrit 36.2 % (42.0-52.0) L Mean Corpuscular Volume 105 FL (80-99) H Mean Corpuscular Hemoglobin 34.0 PG (27.0-31.0) H Mean Corpuscular Hemoglobin Concent 32.3 G/DL (32.0-36.0) Red Cell Distribution Width 12.6 % (11.6-14.8) Platelet Count 198 K/UL (150-450) Mean Platelet Volume 7.3 FL (6.5-10.1) Neutrophils (%) (Auto) 48.1 % (45.0-75.0) Lymphocytes (%) (Auto) 36.1 % (20.0-45.0) Monocytes (%) (Auto) 11.6 % (1.0-10.0) H Eosinophils (%) (Auto) 2.1 % (0.0-3.0) Basophils (%) (Auto) 2.1 % (0.0-2.0) H Sodium Level 140 MMOL/L (136-145) Potassium Level 3.8 MMOL/L (3.5-5.1) Chloride Level 105 MMOL/L (98-107) Carbon Dioxide Level 26 MMOL/L (21-32) Anion Gap 9 mmol/L (5-15) Blood Urea Nitrogen 13 mg/dL (7-18) Creatinine 0.7 MG/DL (0.55-1.30) Estimat Glomerular Filtration Rate > 60 mL/min (>60) Glucose Level 87 MG/DL (74-106) Calcium Level 8.5 MG/DL (8.5-10.1) Intake and Output 04/24/20 04/25/20 19:00 07:00 Intake Total 140 ml 1280 ml Output Total 1200 ml Balance -1060 ml 1280 ml Intake Oral 140 ml 420 ml IV Total 860 ml Output Urine Total 1200 ml # Voids 3 4 Objective General Appearance: WD/WN, no apparent distress, alert EENT: PERRL/EOMI, normal ENT inspection Neck: non-tender, normal alignment, supple, normal inspection Cardiovascular: normal peripheral pulses, normal rate, regular rhythm, no gallop/murmur, no JVD Respiratory/Chest: chest wall non-tender, lungs clear, normal breath sounds, no respiratory distress, no accessory muscle use Abdomen: normal bowel sounds, non tender, soft, no organomegaly, no mass Extremities: normal range of motion, non-tender 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
[2020-04-25 12:00] VITALS: BP 137/73
--- NOTE | 2020-04-25 12:08 | NUR ---
INSURANCE FAXED CLINICAL/REVIEW TO [facility] FAX [phone] TELE [phone]
--- NOTE | 2020-04-25 13:38 | Surgery Progress Note ---
Surgery Progress Note Subjective Symptoms: improved, tolerating diet, passing flatus Objective Last 24 Hour Vital Signs Date Time Temp Pulse Resp B/P (MAP) Pulse Ox O2 Delivery O2 Flow Rate FiO2 04/25/20 12:00 97.9 61 18 137/73 (94) 98 04/25/20 11:01 58 18 130/76 96 04/25/20 10:27 58 18 130/76 96 04/25/20 10:05 Room Air 04/25/20 08:00 99.0 61 18 132/73 (92) 98 04/25/20 04:00 98.6 67 16 135/82 (99) 96 04/25/20 00:29 64 16 147/82 97 04/25/20 00:09 98.6 64 16 147/82 (103) 97 04/24/20 23:59 66 16 133/76 98 04/24/20 20:16 Room Air 04/24/20 20:07 98.3 66 16 133/76 (95) 98 04/24/20 16:00 97.8 74 18 134/81 (98) 97 I&O Intake and Output 04/24/20 04/25/20 19:00 07:00 Intake Total 140 ml 1280 ml Output Total 1200 ml Balance -1060 ml 1280 ml Intake Oral 140 ml 420 ml IV Total 860 ml Output Urine Total 1200 ml # Voids 3 4 Dressing: saturated Cardiovascular: RSR Respiratory: clear, decreased breath sounds Abdomen: soft, non-tender, present bowel sounds Extremities: no edema, no tenderness, no cyanosis Laboratory Tests Test 04/25/20 06:05 White Blood Count 5.4 K/UL (4.8-10.8) Red Blood Count 3.44 M/UL (4.70-6.10) L Hemoglobin 11.7 G/DL (14.2-18.0) L Hematocrit 36.2 % (42.0-52.0) L Mean Corpuscular Volume 105 FL (80-99) H Mean Corpuscular Hemoglobin 34.0 PG (27.0-31.0) H Mean Corpuscular Hemoglobin Concent 32.3 G/DL (32.0-36.0) Red Cell Distribution Width 12.6 % (11.6-14.8) Platelet Count 198 K/UL (150-450) Mean Platelet Volume 7.3 FL (6.5-10.1) Neutrophils (%) (Auto) 48.1 % (45.0-75.0) Lymphocytes (%) (Auto) 36.1 % (20.0-45.0) Monocytes (%) (Auto) 11.6 % (1.0-10.0) H Eosinophils (%) (Auto) 2.1 % (0.0-3.0) Basophils (%) (Auto) 2.1 % (0.0-2.0) H Sodium Level 140 MMOL/L (136-145) Potassium Level 3.8 MMOL/L (3.5-5.1) Chloride Level 105 MMOL/L (98-107) Carbon Dioxide Level 26 MMOL/L (21-32) Anion Gap 9 mmol/L (5-15) Blood Urea Nitrogen 13 mg/dL (7-18) Creatinine 0.7 MG/DL (0.55-1.30) Estimat Glomerular Filtration Rate > 60 mL/min (>60) Glucose Level 87 MG/DL (74-106) Calcium Level 8.5 MG/DL (8.5-10.1) Plan Problems: (1) Scapula fracture Assessment & Plan: EtOH use recent fall CT with fracture. Patient does not recall trauma or injury identifiable. Does not have history of known fracture in the past of It. On examination fairly benign at this time. Plan for para today. No acute surgical invention indicated recommend at this time. Scaphoid fracture can be monitored for now. Outpatient follow-up with Ortho if desired. Okay for diet. Follow with recommendations thank you let me participate patient's care pulmonary arteries: No definite PE visualized. Aorta: No aortic dissection. Lungs: No focal consolidation. Pleural space: Unremarkable. No significant effusion. No pneumothorax. Heart: Unremarkable. Bones/joints: Right inferior scapular fracture, please correlate clinically for acuity. Subacute/chronic rib fractures. Soft tissues: Unremarkable. Lymph nodes: Unremarkable. IMPRESSION: 1. Limited due to motion. 2. No definite PE visualized. 3. No focal consolidation. 4. Right inferior scapular fracture, please correlate clinically for acuity. (2) Acute alcoholic intoxication (3) Alcohol intoxication (4) Alcohol abuse (5) Alcohol abuse (6) Pancreatitis (7) Sepsis (8) Abrasion (9) Chronic pain (10) Drug-seeking behavior (11) Chronic leg pain (12) Contusion of leg, right (13) Contusion of lower leg, right (14) Contusion of mid back (15) Injury of lower extremity (16) Injury of lower extremity (17) Injury of lower extremity (18) Injury of lower extremity (19) Encounter for generalized patient complaints (20) Refusal of care by patient (21) Status post fracture of right tibia Abiodun Moreno Apr 25, 2020 13:38
[2020-04-25] MEDS: D5 1/2NS w/KCl 20mEq 1,000 ML IV SCH (15:17)
[2020-04-25 16:00] VITALS: BP 159/90
--- NOTE | 2020-04-25 17:32 | NUR ---
*-*DISCHARGE PLANNING*-* PATIENT HAS BEEN REFERRED TO: [facility] P: [phone] S/W ANDREWS, WILL CALL BACK AFTER REVIEW. CALLED BACK 10 MINS LLATER, NO ANSWER, FOLLOW UP TOMORROW RENEE PAULINO P: [phone] S/W MARCIA, WILL FOLLOW UP AFTER REVIEW. RACHEL P: [phone] S/W BEL WILL CALL BACK AFTER REVIEW. RENARD SHEN P: [phone] S/W VENUS, WILL FOLLOW UP AFTER REVIEWING CLINICALS. [facility] P: [phone] S/W MADHURI, WILL CALL BACK [facility] P: [phone] NO ANSWER MARYJANE P: [phone] S/W SWATHI, ADMISSIONS BUSY , CALL BACK. [facility] P: [phone] S/W NISSA, WILL FOLLOW UP AFTER REVIEWING CLINICALS.
--- NOTE | 2020-04-25 19:00 | NUR ---
NURSE NOTES: Patient requesting Ativan,patient state Ativan helps with the withdrawl .Patient alert and oriented.IV fluids continue to infuse as ordered. Bed alarm on,call light within reach.Will endorse follow up.
--- NOTE | 2020-04-25 19:28 | NUR ---
NURSE HAND-OFF: Chapito BRAN Important Events on Shift:[] Patient Status: [] Diet: [Regular] Pending Orders: [IN am 04/26/20 CBC ,BMP] Pending Results/Labs:[] Pending MD notification:[] Latest Vital Signs: Temperature 98.3 , Pulse 62 , B/P 166 /96 , Respiratory Rate 18 , O2 SAT 97 , Room Air, O2 Flow Rate . Vital Sign Comment: [] Latest Leal Fall Score: 70 Fall Risk: High Risk Safety Measures: Call light Within Reach, Bed Alarm Zone 1, Side Rails Side Rails x2, Bed position Low and Locked. Fall Precautions: Yellow Socks Yellow Gown Door Sign Yes Patient Fall Education Report given to [].
--- NOTE | 2020-04-25 19:51 | NUR ---
NURSE NOTES: Patient in bed, awake. Able to make needs known. REspiration is even and unlabored. No complaint of pain or discomfort. Abdomen is soft and non distended. Skin is warm and dry to touch. Noted with right upper arm bruise, no pain at the site. Bed in low and locked position. provided safe environment. Call light is at bedside. Iv site noted, iv fluid is infusing as ordered. Will continue plan of care.
[2020-04-25 20:00] VITALS: BP 156/90
[2020-04-25] MEDS: Miralax 17gm pkt ORAL SCH (20:41)
--- NOTE | 2020-04-25 23:50 | NUR ---
NURSE NOTES: Given PRN medication Ativan for withdrawals. Call light is at bedside. Will continue plan of care.
[2020-04-26] VITALS (7 sets, daily range): BP systolic 119–141; BP diastolic 65–89
[2020-04-26] MEDS: D5 1/2NS w/KCl 20mEq 1,000 ML IV SCH ×2 (02:11→17:22)
--- NOTE | 2020-04-26 07:00 | NUR ---
NURSE NOTES: Received report from YINA Uriarte. Patient observed to be awake, alert and oriented x4. Seen lying in bed with HOB elevated currently on room air, no s/sx of SOB/Distres, no c/o pain or discomfort. IV site located on RFA gauge [address], intact, dry and patent running d51/2 + 20meq kcl @75cc/hr. Bed placed on lowest and locked, call light placed within reach and will continue to monitor for any changes in patient's condition.
--- NOTE | 2020-04-26 07:19 | NUR ---
NURSE HAND-OFF: Important Events on Shift:WNL Patient Status: WNL Diet: REG Pending Orders: Pending Results/Labs: Pending MD notification: Latest Vital Signs: Temperature 97.7 , Pulse 57 , B/P 138 /76 , Respiratory Rate 20 , O2 SAT 98 , Room Air, O2 Flow Rate . Vital Sign Comment: WNL Latest Leal Fall Score: 70 Fall Risk: High Risk Safety Measures: Call light Within Reach, Bed Alarm Zone 1, Side Rails Side Rails x2, Bed position Low and Locked. Fall Precautions: Yellow Socks Yellow Gown Door Sign Patient Fall Education Report given to YINA Wright.
[2020-04-26 07:24] LABS: BASOPHILS % (AUTO) 2.9 % (0.0-2.0); HEMATOCRIT 36.7 % (42.0-52.0); MEAN CORPUSCULAR VOLUME 105 FL (80-99); MONOCYTES % (AUTO) 10.7 % (1.0-10.0); NEUTROPHILS % (AUTO) 47.4 % (45.0-75.0); PLATELET COUNT 217 K/UL (150-450); RED BLOOD COUNT 3.51 M/UL (4.70-6.10); RED CELL DISTRIBUTION WIDTH 12.3 % (11.6-14.8)
[2020-04-26 07:46] LABS: ANION GAP 9 mmol/L (5-15); BLOOD UREA NITROGEN 10 mg/dL (7-18); CARBON DIOXIDE 26 MMOL/L (21-32); CHLORIDE 106 MMOL/L (98-107); CREATININE 0.7 MG/DL (0.55-1.30); POTASSIUM 3.8 MMOL/L (3.5-5.1); SODIUM 140 MMOL/L (136-145)
--- NOTE | 2020-04-26 08:19 | Surgery Progress Note ---
Surgery Progress Note Subjective Additional Comments afebrile, HD stable labs noted micro reviewed comfortable appearing no n/v Objective Last 24 Hour Vital Signs Date Time Temp Pulse Resp B/P (MAP) Pulse Ox O2 Delivery O2 Flow Rate FiO2 04/26/20 04:00 97.7 57 20 138/76 (96) 98 04/26/20 00:14 60 20 140/89 97 04/26/20 00:00 98.7 60 20 140/89 (106) 97 04/25/20 23:44 70 20 155/93 96 04/25/20 21:00 Room Air 04/25/20 20:00 98.0 63 20 156/90 (112) 98 04/25/20 19:28 63 20 156/90 98 04/25/20 18:58 62 18 166/96 97 04/25/20 16:00 98.3 61 18 159/90 (113) 95 04/25/20 12:00 97.9 61 18 137/73 (94) 98 04/25/20 11:01 58 18 130/76 96 04/25/20 10:27 58 18 130/76 96 04/25/20 10:05 Room Air I&O Intake and Output 04/25/20 04/26/20 19:00 07:00 Intake Total 1980 ml 1825 ml Output Total 1025 ml 1025 ml Balance 955 ml 800 ml Intake Oral 1080 ml 1000 ml IV Total 900 ml 825 ml Output Urine Total 1025 ml 1025 ml # Bowel Movements 1 Cardiovascular: RSR Respiratory: clear Abdomen: soft, non-tender, present bowel sounds, non-distended Extremities: no edema, no tenderness, no cyanosis Laboratory Tests Test 04/26/20 06:11 White Blood Count 6.0 K/UL (4.8-10.8) Red Blood Count 3.51 M/UL (4.70-6.10) L Hemoglobin 12.0 G/DL (14.2-18.0) L Hematocrit 36.7 % (42.0-52.0) L Mean Corpuscular Volume 105 FL (80-99) H Mean Corpuscular Hemoglobin 34.2 PG (27.0-31.0) H Mean Corpuscular Hemoglobin Concent 32.7 G/DL (32.0-36.0) Red Cell Distribution Width 12.3 % (11.6-14.8) Platelet Count 217 K/UL (150-450) Mean Platelet Volume 7.6 FL (6.5-10.1) Neutrophils (%) (Auto) 47.4 % (45.0-75.0) Lymphocytes (%) (Auto) 37.0 % (20.0-45.0) Monocytes (%) (Auto) 10.7 % (1.0-10.0) H Eosinophils (%) (Auto) 2.0 % (0.0-3.0) Basophils (%) (Auto) 2.9 % (0.0-2.0) H Sodium Level 140 MMOL/L (136-145) Potassium Level 3.8 MMOL/L (3.5-5.1) Chloride Level 106 MMOL/L (98-107) Carbon Dioxide Level 26 MMOL/L (21-32) Anion Gap 9 mmol/L (5-15) Blood Urea Nitrogen 10 mg/dL (7-18) Creatinine 0.7 MG/DL (0.55-1.30) Estimat Glomerular Filtration Rate > 60 mL/min (>60) Glucose Level 94 MG/DL (74-106) Calcium Level 9.0 MG/DL (8.5-10.1) Plan Problems: (1) Scapula fracture Assessment & Plan: EtOH use recent fall CT with fracture. Patient does not recall trauma or injury identifiable. Does not have history of known fracture in the past of It. On examination fairly benign at this time. Plan for para today. No acute surgical invention indicated recommend at this time. Scaphoid fracture can be monitored for now. Outpatient follow-up with Ortho if desired. Okay for diet. Follow with recommendations thank you let me participate patient's care pulmonary arteries: No definite PE visualized. Aorta: No aortic dissection. Lungs: No focal consolidation. Pleural space: Unremarkable. No significant effusion. No pneumothorax. Heart: Unremarkable. Bones/joints: Right inferior scapular fracture, please correlate clinically for acuity. Subacute/chronic rib fractures. Soft tissues: Unremarkable. Lymph nodes: Unremarkable. IMPRESSION: 1. Limited due to motion. 2. No definite PE visualized. 3. No focal consolidation. 4. Right inferior scapular fracture, please correlate clinically for acuity. (2) Acute alcoholic intoxication (3) Alcohol intoxication (4) Alcohol abuse (5) Alcohol abuse (6) Pancreatitis (7) Sepsis (8) Abrasion (9) Chronic pain (10) Drug-seeking behavior (11) Chronic leg pain (12) Contusion of leg, right (13) Contusion of lower leg, right (14) Contusion of mid back (15) Injury of lower extremity (16) Injury of lower extremity (17) Injury of lower extremity (18) Injury of lower extremity (19) Encounter for generalized patient complaints (20) Refusal of care by patient (21) Status post fracture of right tibia Abiodun Moreno Apr 26, 2020 08:19
[2020-04-26] MEDS: Thiamine 100mg tab ORAL SCH (08:20)
[2020-04-26] MEDS: LORazepam Inj 2mg/ml 1ml IV PRN (08:38)
--- NOTE | 2020-04-26 09:10 | NUR ---
PT NOTE Attempted to see patient for PT treatment. Patient declining to participate at this time, states he was just given Ativan. Will re-attempt later as schedule permits, Adriana RN notified.
[2020-04-26] MEDS ORDERED: LORazepam Inj 2mg/ml 1ml IV PRN (12:30)
--- NOTE | 2020-04-26 13:08 | NUR ---
CASE MANAGEMENT:REVIEW 04/26/20 SI: ALCOHOLISM W/WITHDRAWAL. DEHYDRATION 98.0 72 20 119/68 97% ON RA H/H-12.0/36.7 IS: SYNTHROID PO QD PROTONIX PO QD FOLATE PO QD THIAMINE PO QD IVF@75/HR IV ATIVAN Q4HRS PRN ANXIETY ULTRAM PO Q6HRS PRN : MED/SURG STATUS DCP: HOME...LIVES WITH HIS BROTHER IN [place] PLAN: DISCHARGE PLANNING TO SAFE DESTINATION...SEEKING SNF PLACEMENT
--- NOTE | 2020-04-26 15:44 | NUR ---
*-*DISCHARGE PLANNING*-* PATIENT HAS BEEN REFERRED TO: [facility] P: [phone] FOR NURSE TO NURSE REPORT ROOM# 10.B
--- NOTE | 2020-04-26 16:02 | NUR ---
*-*DISCHARGE PLANNED*-* PATIENT HAS BEEN ACCEPTED AND WILL BE DISCHARGED TO: [facility] P: [phone] FOR NURSE TO NURSE REPORT ROOM# 10.B [facility] TRANSPORTATION SET OR 7:30PM S/W JOSHUA [id number]. PLACED A JASON TO PATIENT FAMILY NICKIE DIAZ, NO ANSWER UNABLE TO LEAVE VOICE MESSAGE.
--- NOTE | 2020-04-26 17:32 | Internal Med Progress Note ---
Subjective Physician Name Sabino Steve Attending Physician Sabino Steve MD Current Medications Medications (Trade) Dose Ordered Sig/Lc Route PRN Reason Start Time Stop Time Status Last Admin Dose Admin Dextrose/ Electrolytes 1,000 ml @ 75 mls/hr [id number] IV 04/20/20 02:00 05/20/20 01:59 04/26/20 17:22 Folic Acid (Folate) 1 mg DAILY ORAL 04/20/20 09:00 05/20/20 08:59 04/26/20 08:20 Levothyroxine Sodium (Synthroid) 100 mcg DAILY@0630 ORAL 04/22/20 06:30 05/22/20 06:29 04/26/20 06:15 Lorazepam (Ativan 2mg/ml 1ml) 0.5 mg Q4H PRN IV For Anxiety 04/26/20 12:30 05/03/20 12:29 Ondansetron HCl (Zofran) 4 mg Q4H PRN IVP Nausea & Vomiting 04/20/20 00:30 05/20/20 00:29 Pantoprazole (Protonix) 40 mg DAILY ORAL 04/20/20 09:00 05/20/20 08:59 04/26/20 08:20 Polyethylene Glycol (Miralax) 17 gm QHS ORAL 04/20/20 00:45 05/20/20 00:44 04/25/20 20:41 Thiamine HCl (Vitamin B1) 100 mg DAILY ORAL 04/20/20 09:00 05/20/20 08:59 04/26/20 08:20 Tramadol HCl (Ultram) 50 mg Q6H PRN ORAL For Pain 04/22/20 07:30 04/29/20 07:29 04/24/20 12:27 Allergies: Coded Allergies: No Known Allergies (Unverified , 04/28/14) Subjective awake, alert, responsive, NAD. Objective Last Vital Signs Date Time Temp Pulse Resp B/P (MAP) Pulse Ox O2 Delivery O2 Flow Rate FiO2 04/26/20 12:00 98.0 72 20 119/68 (85) 97 04/26/20 09:00 Room Air Laboratory Tests Test 04/26/20 06:11 White Blood Count 6.0 K/UL (4.8-10.8) Red Blood Count 3.51 M/UL (4.70-6.10) L Hemoglobin 12.0 G/DL (14.2-18.0) L Hematocrit 36.7 % (42.0-52.0) L Mean Corpuscular Volume 105 FL (80-99) H Mean Corpuscular Hemoglobin 34.2 PG (27.0-31.0) H Mean Corpuscular Hemoglobin Concent 32.7 G/DL (32.0-36.0) Red Cell Distribution Width 12.3 % (11.6-14.8) Platelet Count 217 K/UL (150-450) Mean Platelet Volume 7.6 FL (6.5-10.1) Neutrophils (%) (Auto) 47.4 % (45.0-75.0) Lymphocytes (%) (Auto) 37.0 % (20.0-45.0) Monocytes (%) (Auto) 10.7 % (1.0-10.0) H Eosinophils (%) (Auto) 2.0 % (0.0-3.0) Basophils (%) (Auto) 2.9 % (0.0-2.0) H Sodium Level 140 MMOL/L (136-145) Potassium Level 3.8 MMOL/L (3.5-5.1) Chloride Level 106 MMOL/L (98-107) Carbon Dioxide Level 26 MMOL/L (21-32) Anion Gap 9 mmol/L (5-15) Blood Urea Nitrogen 10 mg/dL (7-18) Creatinine 0.7 MG/DL (0.55-1.30) Estimat Glomerular Filtration Rate > 60 mL/min (>60) Glucose Level 94 MG/DL (74-106) Calcium Level 9.0 MG/DL (8.5-10.1) Intake and Output 04/25/20 04/26/20 19:00 07:00 Intake Total 1980 ml 1825 ml Output Total 1025 ml 1025 ml Balance 955 ml 800 ml Intake Oral 1080 ml 1000 ml IV Total 900 ml 825 ml Output Urine Total 1025 ml 1025 ml # Bowel Movements 1 Objective Physical Exam General: No acute distress, awake and alert HEENT: NCAT, sclera anicteric, PERRL, EOMI. Neck: Supple, no significant jugular venous distention, Lungs: Good inspiratory effort, clear to auscultation bilaterally, no Wheeze or Rales. Heart: Regular rate and rhythm, normal S1/S2, no murmurs. Abdomen: soft, nontender, nondistended. Normoactive bowel sounds. / Rectal: Refused and deferred. Extremities: No Cyanosis , clubbing or edema. Neuro: A&O x 3, Able to move all extremities Skin: warm, no rashes or lesions Psych: Normal mood and affect Assessment/Plan Assessment/Plan (1) Right scapula fracture Assessment & Plan: Surgery=Dr Moreno (2) Rib fracture (3) Shortness of breath Assessment & Plan: COVID 19 NEG (4) Acute alcoholic intoxication (5) Alcohol abuse (6) Pancreatitis (7) Contusion of leg, right Assessment/Plan Discharge today. Sabino Steve MD Apr 26, 2020 17:32
--- NOTE | 2020-04-26 18:14 | NUR ---
INSURANCE FAXED CLINICAL/REVIEW TO [facility] FAX [phone] TELE [phone]
--- NOTE | 2020-04-26 19:10 | NUR ---
NURSE HAND-OFF: Important Events on Shift:patient for d/c to [facility] Patient Status: stable Diet: reg Pending Orders: n/a Pending Results/Labs:n/a Pending MD notification:n/a Latest Vital Signs: Temperature 98.4 , Pulse 66 , B/P 125 /65 , Respiratory Rate 20 , O2 SAT 97 , Room Air, O2 Flow Rate . Vital Sign Comment: stable Latest Leal Fall Score: 70 Fall Risk: High Risk Safety Measures: Call light Within Reach, Bed Alarm Zone 1, Side Rails Side Rails x2, Bed position Low and Locked. Fall Precautions: Yellow Socks Yellow Gown Door Sign Patient Fall Education Report given to YINA SHEARER.
--- NOTE | 2020-04-26 19:46 | NUR ---
NURSE NOTES: Patient in bed, awake, alert and verbally responsive. Skin is warm and dry to touch, noted with right upper arm bruising. Respiration is even and unlabored. Abdomen is soft and non-distended. No complaint of pain or discomfort noted. Bed in low and locked position. Provide safe environment. Iv site noted, iv fluid is infusing. Patient is to be discharge tonight. Call light is at bedside. Will continue plan of care.
[2020-04-26] MEDS: Miralax 17gm pkt ORAL SCH (20:23)
--- NOTE | 2020-04-26 20:30 | NUR ---
NURSE NOTES: Spoke to [facility], berry picker time will most likely be 2129. Charge nurse made aware.
--- NOTE | 2020-04-27 00:17 | NUR ---
NURSE NOTES: [facility], personnel Navi said that another 30 minutes until hand picker.
--- NOTE | 2020-04-27 00:40 | NUR ---
NURSE NOTES: Spoke to Linnea from [facility], [place], patient was just picked up and eta 1 hour. Patient was picked up, no s/s of distress noted. All belongings with patient. IV site removed.
--- NOTE | 2020-04-30 13:52 | Discharge Summary ---
Discharge Summary Discharge Summary _ Date of admission: 04/11/2020 Date of discharge: 04/26/[address] Steve History of Present Illness and Brief Hospital Course Mr. Kwon is a 64-year-old male with past medical history of alcohol abuse who presented to the ED for evaluation of shortness of breath x1 day. Patient reported that he fell and hit his head the night prior to presentation but denied any loss of consciousness. CT angio with contrast showed right inferior scapular fracture but no definite pulmonary embolus. Chest x-ray was notable for cardiomegaly without acute process. Cervical and spine CT showed no acute traumatic abnormality. Head CT was negative for acute intracranial abnormality. Lumbar spine x-ray showed no acute abnormality. Patient was evaluated by a surgeon given the scapular fracture. The exam was fairly benign and no acute surgical intervention was indicated. Patient was instructed to follow-up with Ortho headaches as an outpatient if desired. Patient was monitored for change in medical condition. Patient was medically stable for discharge on 04/26/2020. Patient tested negative for COVID-19 via PCR on 04/19/2020. Consultants: Surgery Dr. Moreno Discharge Condition Improved and stable Final diagnoses Right scapular fracture Rib fracture Shortness of breath Acute alcoholic intoxication Alcohol abuse Pancreatitis Contusion of the leg, right Abrasion I have been assigned to dictate discharge summary for this account. I was not involved in the patient's management Storm Stark Apr 30, 2020 13:52
== END 2020-04-26 00:45 | DRG 775 ==
LOC: EDBD 16:57 → EMR 17:57 → 2E 20:55 → EDBEDREQ 23:20 → 4E 04-20 22:38
DX: F10.239 Alcohol dependence with withdrawal, unspecified (principal); S42.101A Fracture of unspecified part of scapula, right shoulder, initial encounter for closed fracture; E83.42 Hypomagnesemia; S22.49XA Multiple fractures of ribs, unspecified side, initial encounter for closed fracture; E86.0 Dehydration; K85.90 Acute pancreatitis without necrosis or infection, unspecified; S80.11XA Contusion of right lower leg, initial encounter; R26.81 Unsteadiness on feet; X58.XXXA Exposure to other specified factors, initial encounter; R06.02 Shortness of breath
CPT/HCPCS: 36415; 70450; 71045; 71275; 72020; 72125; 80048; 80053; 81003; 82248; 82550; 82728; 83605; 83615; 83735; 83880; 84100; 84439; 84443; 84480; 84481; 84484; 85025; 85379; 85610; 85730; 86140; 87040; 87081; 93005; 93970; 96361; 96365; 96367; 96375; 99291; J7030